=== PATIENT | male | born 1945 | race Caucasian/White ===

== ENCOUNTER → 2016-07-23 | Outpatient (CLI) | payer MEDICARE, BC ==
[2016-07-23 08:51] LABS: Direct HDL 32 mg/dL (>40); TRIGLYCERIDES 205 mg/dL (<150)
[2016-07-23 08:53] LABS: ANION GAP 13 (5-19); BLOOD UREA NITROGEN 18 mg/dL (7-20); CALCIUM 9.4 mg/dL (8.4-10.2); CARBON DIOXIDE 24 mmol/L (22-30); CHLORIDE 106 mmol/L (98-107); GLUCOSE 104 mg/dL (75-110); POTASSIUM 4.1 mmol/L (3.6-5.0); SODIUM 142.8 mmol/L (137-145)
[2016-07-23 09:01] LABS: DIRECT LDL 59 mg/dL (<100)
== END ==
LOC: OD 07:32
PROVIDERS: ATTEND Internal Medicine Cardiovascular Disease
DX: E78.2 Mixed hyperlipidemia (principal)
CPT/HCPCS: 36415; 80048; 80061

== ENCOUNTER → 2016-10-19 | Outpatient (CLI) | payer MEDICARE, BC ==
[2016-10-19 09:05] LABS: HEMATOCRIT 44.3 % (37.9-51.0); HEMOGLOBIN 15.5 g/dL (13.5-17.0); HGB HCT DIFFERENCE 2.2; RED BLOOD COUNT 4.85 10^6/uL (4.35-5.55); WHITE BLOOD COUNT 5.9 10^3/uL (4.0-10.5)
[2016-10-19 09:06] LABS: ABSOLUTE EOSINOPHILS # (AUTO) 0.3 10^3/uL (0.0-0.6); ABSOLUTE LYMPHOCYTES (AUTO) 1.3 10^3/uL (0.5-4.7); ABSOLUTE MONOCYTES (AUTO) 0.6 10^3/uL (0.1-1.4); ABSOLUTE NEUT (AUTO) 3.7 10^3/uL (1.7-8.2); BASOPHILS % (AUTO) 0.8 % (0-2); EOSINOPHILS % (AUTO) 4.8 % (0-6); LYMPHOCYTES % (AUTO) 22.2 % (13-45); MEAN CORPUSCULAR HEMOGLOBIN 31.9 pg (27.0-33.4); MEAN CORPUSCULAR HGB CONC 34.9 g/dL (32.0-36.0); MEAN CORPUSCULAR VOLUME 91 fl (80-97); MONOCYTES % (AUTO) 9.9 % (3-13); RED CELL DISTRIBUTION WIDTH 13.7 % (11.5-14.0); SEGMENTED NEUTROPHILS % (AUTO) 62.3 % (42-78)
[2016-10-19 09:21] LABS: ALANINE AMINOTRANSFERASE 43 U/L (21-72); ALKALINE PHOSPHATASE 99 U/L (38-126); ANION GAP 13 (5-19); ASPARTATE AMINO TRANSFERASE 37 U/L (17-59); BILIRUBIN,DIRECT 0.3 mg/dL (0.0-0.4); BLOOD UREA NITROGEN 22 mg/dL (7-20); CALCIUM 8.9 mg/dL (8.4-10.2); CARBON DIOXIDE 23 mmol/L (22-30); CHLORIDE 107 mmol/L (98-107); CREATININE RESULT 1.38 mg/dL (0.52-1.25); Direct HDL 32 mg/dL (>40); GLUCOSE 104 mg/dL (75-110); POTASSIUM 4.4 mmol/L (3.6-5.0); SODIUM 143.2 mmol/L (137-145); TOTAL PROTEIN 7.2 g/dL (6.3-8.2); TRIGLYCERIDES 191 mg/dL (<150)
[2016-10-19 09:32] LABS: DIRECT LDL 59 mg/dL (<100)
[2016-10-19 09:42] LABS: VLDL CHOLESTEROL 38.2 mg/dL (10-31)
[2016-10-19 09:43] LABS: ANION GAP 13 (5-19); BLOOD UREA NITROGEN 22 mg/dL (7-20); CALCIUM 8.9 mg/dL (8.4-10.2); CARBON DIOXIDE 23 mmol/L (22-30); CHLORIDE 107 mmol/L (98-107); CREATININE RESULT 1.38 mg/dL (0.52-1.25); GLUCOSE 104 mg/dL (75-110); POTASSIUM 4.4 mmol/L (3.6-5.0); SODIUM 143.2 mmol/L (137-145)
== END ==
LOC: OD 07:43
PROVIDERS: ATTEND Family Medicine Geriatric Medicine
DX: J44.9 Chronic obstructive pulmonary disease, unspecified (principal); E78.5 Hyperlipidemia, unspecified; I25.10 Atherosclerotic heart disease of native coronary artery without angina pectoris; Z79.899 Other long term (current) drug therapy; I12.9 Hypertensive chronic kidney disease with stage 1 through stage 4 chronic kidney disease, or unspecified chronic kidney disease; N18.9 Chronic kidney disease, unspecified
CPT/HCPCS: 36415; 80048; 80053; 80061; 85025

== ENCOUNTER → 2017-01-18 | Outpatient (CLI) | payer MEDICARE, BC ==
[2017-01-18 08:47] LABS: ABSOLUTE EOSINOPHILS # (AUTO) 0.3 10^3/uL (0.0-0.6); ABSOLUTE LYMPHOCYTES (AUTO) 1.3 10^3/uL (0.5-4.7); ABSOLUTE MONOCYTES (AUTO) 0.5 10^3/uL (0.1-1.4); ABSOLUTE NEUT (AUTO) 3.4 10^3/uL (1.7-8.2); BASOPHILS % (AUTO) 0.7 % (0-2); EOSINOPHILS % (AUTO) 5.2 % (0-6); HEMATOCRIT 45.5 % (37.9-51.0); HEMOGLOBIN 15.8 g/dL (13.5-17.0); HGB HCT DIFFERENCE 1.9; LYMPHOCYTES % (AUTO) 23.8 % (13-45); MEAN CORPUSCULAR HEMOGLOBIN 32.3 pg (27.0-33.4); MEAN CORPUSCULAR HGB CONC 34.7 g/dL (32.0-36.0); MEAN CORPUSCULAR VOLUME 93 fl (80-97); MONOCYTES % (AUTO) 9.6 % (3-13); RED BLOOD COUNT 4.89 10^6/uL (4.35-5.55); RED CELL DISTRIBUTION WIDTH 13.5 % (11.5-14.0); SEGMENTED NEUTROPHILS % (AUTO) 60.7 % (42-78); WHITE BLOOD COUNT 5.6 10^3/uL (4.0-10.5)
[2017-01-18 09:11] LABS: ALANINE AMINOTRANSFERASE 46 U/L (21-72); ALKALINE PHOSPHATASE 90 U/L (38-126); ANION GAP 12 (5-19); ASPARTATE AMINO TRANSFERASE 32 U/L (17-59); BILIRUBIN,DIRECT 0.3 mg/dL (0.0-0.4); BILIRUBIN,TOTAL 0.8 mg/dL (0.2-1.3); BLOOD UREA NITROGEN 15 mg/dL (7-20); CALCIUM 9.1 mg/dL (8.4-10.2); CARBON DIOXIDE 25 mmol/L (22-30); CHLORIDE 105 mmol/L (98-107); CREATININE RESULT 1.36 mg/dL (0.52-1.25); Direct HDL 31 mg/dL (>40); GLUCOSE 102 mg/dL (75-110); POTASSIUM 4.4 mmol/L (3.6-5.0); SODIUM 142.1 mmol/L (137-145); TOTAL PROTEIN 7.3 g/dL (6.3-8.2); TRIGLYCERIDES 212 mg/dL (<150)
[2017-01-18 09:22] LABS: DIRECT LDL 70 mg/dL (<100)
[2017-01-18 09:24] LABS: VLDL CHOLESTEROL 42.4 mg/dL (10-31)
[2017-01-18 09:44] LABS: ANION GAP 12 (5-19); BLOOD UREA NITROGEN 15 mg/dL (7-20); CALCIUM 9.1 mg/dL (8.4-10.2); CARBON DIOXIDE 25 mmol/L (22-30); CHLORIDE 105 mmol/L (98-107); CREATININE RESULT 1.36 mg/dL (0.52-1.25); DIRECT LDL 70 mg/dL (<100); Direct HDL 31 mg/dL (>40); GLUCOSE 102 mg/dL (75-110); POTASSIUM 4.4 mmol/L (3.6-5.0); SODIUM 142.1 mmol/L (137-145); TRIGLYCERIDES 212 mg/dL (<150); VLDL CHOLESTEROL 42.4 mg/dL (10-31)
== END ==
LOC: OD 07:31
PROVIDERS: ATTEND Family Medicine Geriatric Medicine
DX: E78.2 Mixed hyperlipidemia (principal); Z79.899 Other long term (current) drug therapy; N18.9 Chronic kidney disease, unspecified
CPT/HCPCS: 36415; 80048; 80053; 80061; 85025

== ENCOUNTER → 2017-07-21 | Outpatient (CLI) | payer MEDICARE, BC ==
[2017-07-21 09:57] LABS: CHOLESTEROL 130.27 mg/dL (0-200); TRIGLYCERIDES 192 mg/dL (<150)
[2017-07-21 10:08] LABS: DIRECT LDL 66 mg/dL (<100)
[2017-07-21 10:09] LABS: VLDL CHOLESTEROL 38.4 mg/dL (10-31)
== END ==
LOC: OD 09:04
PROVIDERS: ATTEND Internal Medicine Cardiovascular Disease
DX: E78.2 Mixed hyperlipidemia (principal)
CPT/HCPCS: 36415; 80061

== ENCOUNTER → 2017-08-29 | Outpatient (CLI) | payer MEDICARE, BC ==
[2017-08-29 08:58] LABS: ALANINE AMINOTRANSFERASE 44 U/L (21-72); ANION GAP 9 (5-19); ASPARTATE AMINO TRANSFERASE 28 U/L (17-59); BLOOD UREA NITROGEN 14 mg/dL (7-20); CALCIUM 9.2 mg/dL (8.4-10.2); CARBON DIOXIDE 28 mmol/L (22-30); CHLORIDE 106 mmol/L (98-107); CHOLESTEROL 152.59 mg/dL (0-200); GLUCOSE 105 mg/dL (75-110); POTASSIUM 4.4 mmol/L (3.6-5.0); SODIUM 143.1 mmol/L (137-145); TRIGLYCERIDES 283 mg/dL (<150)
[2017-08-29 09:09] LABS: DIRECT LDL 80 mg/dL (<100)
[2017-08-29 09:15] LABS: VLDL CHOLESTEROL 56.6 mg/dL (10-31)
== END ==
LOC: OD 07:30
PROVIDERS: ATTEND Family Medicine Geriatric Medicine
DX: E78.5 Hyperlipidemia, unspecified (principal); Z79.899 Other long term (current) drug therapy; D69.6 Thrombocytopenia, unspecified; I10 Essential (primary) hypertension
CPT/HCPCS: 36415; 80048; 80061; 84450; 84460

== ENCOUNTER → 2017-09-05 | Outpatient (CLI) | payer MEDICARE, BC ==
--- NOTE | 2017-09-05 16:22 | RADIOLOGY REPORT (SQ) ---
EXAM DESCRIPTION: HAND RIGHT 3 VIEWS COMPLETED DATE/TIME: 09/05/2017 12:16 pm REASON FOR STUDY: PAIN IN RIGHT FINGER(S) M79.644 PAIN IN RIGHT FINGER(S) COMPARISON: None. EXAM PARAMETERS: NUMBER OF VIEWS: Three views. TECHNIQUE: AP, lateral and oblique radiographic images acquired of the right hand. LIMITATIONS: None. FINDINGS: MINERALIZATION: Normal. BONES: No acute fracture or dislocation. No worrisome bone lesions. JOINTS: Degenerative joint changes seen in the 1st metacarpophalangeal joint PE SOFT TISSUES: No soft tissue swelling. No foreign body. OTHER: No other significant finding. IMPRESSION: Degenerative joint disease. TECHNICAL DOCUMENTATION: JOB ID: [id number] [employer]- All Rights Reserved Reading location - IP/workstation name: [email or web address]
== END ==
LOC: OD 11:51
PROVIDERS: ATTEND Family Medicine Geriatric Medicine
DX: M79.644 Pain in right finger(s) (principal)
CPT/HCPCS: 36415; 84550

== ENCOUNTER → 2017-09-07 | Outpatient (CLI) | payer MEDICARE, BC ==
--- NOTE | 2017-09-07 18:03 | RADIOLOGY REPORT (SQ) ---
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 NUMBER OF VIEWS: Three views. TECHNIQUE: AP, lateral, and oblique without weight bearing radiographic images acquired of the left ankle. LIMITATIONS: None. FINDINGS: MINERALIZATION: Normal. BONES: No acute fracture or dislocation. No worrisome bone lesions. Normal alignment. No significant arthritic changes. JOINTS AND SOFT TISSUES: No swelling. No calcifications. No foreign bodies. OTHER: No other significant finding. IMPRESSION: NEGATIVE STUDY OF THE LEFT ANKLE. NO ACUTE POST-TRAUMATIC CHANGES. NO EXPLANATION FOR PA IN. TECHNICAL DOCUMENTATION: JOB ID: [id number] [employer]- All Rights Reserved Reading location - IP/workstation name: [email or web address]
--- NOTE | 2017-09-07 18:04 | RADIOLOGY REPORT (SQ) ---
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 NUMBER OF VIEWS: Three views. TECHNIQUE: AP, lateral and oblique without weight bearing radiographic images acquired of the left f oot. LIMITATIONS: None. FINDINGS: MINERALIZATION: Normal. BONES: No acute fracture or dislocation. No worrisome bone lesions. Small heel spur. JOINTS: No erosions. No lucia-articular osteopenia. No chondrocalcinosis. SOFT TISSUES: No swelling. No calcifications. OTHER: No other significant finding. IMPRESSION: SMALL HEEL SPUR. NO ACUTE FINDINGS. TECHNICAL DOCUMENTATION: JOB ID: [id number] [employer]- All Rights Reserved Reading location - IP/workstation name: [email or web address]
== END ==
LOC: OD 16:48
PROVIDERS: ATTEND Family Medicine Geriatric Medicine
DX: M72.2 Plantar fascial fibromatosis (principal); M25.571 Pain in right ankle and joints of right foot; M77.32 Calcaneal spur, left foot

== ENCOUNTER → 2017-12-29 | Outpatient (CLI) | payer MEDICARE, BC ==
[2017-12-29 07:54] LABS: ABSOLUTE EOSINOPHILS # (AUTO) 0.3 10^3/uL (0.0-0.6); ABSOLUTE LYMPHOCYTES (AUTO) 1.3 10^3/uL (0.5-4.7); ABSOLUTE MONOCYTES (AUTO) 0.6 10^3/uL (0.1-1.4); ABSOLUTE NEUT (AUTO) 3.4 10^3/uL (1.7-8.2); BASOPHILS % (AUTO) 0.5 % (0-2); HEMATOCRIT 44.7 % (37.9-51.0); HEMOGLOBIN 15.8 g/dL (13.5-17.0); LYMPHOCYTES % (AUTO) 23.6 % (13-45); MEAN CORPUSCULAR HEMOGLOBIN 32.4 pg (27.0-33.4); MEAN CORPUSCULAR HGB CONC 35.3 g/dL (32.0-36.0); MEAN CORPUSCULAR VOLUME 92 fl (80-97); PLATELET COUNT 130 10^3/uL (150-450); RED BLOOD COUNT 4.86 10^6/uL (4.35-5.55); RED CELL DISTRIBUTION WIDTH 13.7 % (11.5-14.0); SEGMENTED NEUTROPHILS % (AUTO) 59.9 % (42-78); TOTAL CELLS COUNTED % (AUTO) 100 %; WHITE BLOOD COUNT 5.6 10^3/uL (4.0-10.5)
[2017-12-29 08:19] LABS: CHOLESTEROL 135.88 mg/dL (0-200); TRIGLYCERIDES 266 mg/dL (<150)
[2017-12-29 08:29] LABS: DIRECT LDL 66 mg/dL (<100)
[2017-12-29 08:33] LABS: VLDL CHOLESTEROL 53.2 mg/dL (10-31)
== END ==
LOC: OD 07:16
PROVIDERS: ATTEND Family Medicine Geriatric Medicine
DX: E78.5 Hyperlipidemia, unspecified (principal); Z79.899 Other long term (current) drug therapy
CPT/HCPCS: 36415; 80061; 85025

== ENCOUNTER → 2018-01-16 | Outpatient (CLI) | payer MEDICARE, BC ==
[2018-01-16 08:35] LABS: ANION GAP 13 (5-19); BLOOD UREA NITROGEN 16 mg/dL (7-20); CALCIUM 9.1 mg/dL (8.4-10.2); CARBON DIOXIDE 25 mmol/L (22-30); CHLORIDE 106 mmol/L (98-107); CHOLESTEROL 123.46 mg/dL (0-200); GLUCOSE 105 mg/dL (75-110); POTASSIUM 4.2 mmol/L (3.6-5.0); SODIUM 144.1 mmol/L (137-145); TRIGLYCERIDES 212 mg/dL (<150)
[2018-01-16 08:46] LABS: DIRECT LDL 58 mg/dL (<100)
[2018-01-16 08:47] LABS: VLDL CHOLESTEROL 42.4 mg/dL (10-31)
== END ==
LOC: OD 07:29
PROVIDERS: ATTEND Internal Medicine Cardiovascular Disease
DX: I10 Essential (primary) hypertension (principal); E78.2 Mixed hyperlipidemia; Z79.899 Other long term (current) drug therapy
CPT/HCPCS: 36415; 80048; 80061

== ENCOUNTER → 2018-05-09 | Outpatient (CLI) | payer MEDICARE ==
[2018-05-09 08:25] LABS: ABSOLUTE EOSINOPHILS # (AUTO) 0.2 10^3/uL (0.0-0.6); ABSOLUTE LYMPHOCYTES (AUTO) 1.5 10^3/uL (0.5-4.7); ABSOLUTE MONOCYTES (AUTO) 0.5 10^3/uL (0.1-1.4); ABSOLUTE NEUT (AUTO) 3.6 10^3/uL (1.7-8.2); BASOPHILS % (AUTO) 0.6 % (0-2); EOSINOPHILS % (AUTO) 3.8 % (0-6); HEMATOCRIT 45.4 % (37.9-51.0); LYMPHOCYTES % (AUTO) 25.3 % (13-45); MEAN CORPUSCULAR HEMOGLOBIN 32.9 pg (27.0-33.4); MEAN CORPUSCULAR HGB CONC 35.4 g/dL (32.0-36.0); MEAN CORPUSCULAR VOLUME 93 fl (80-97); MONOCYTES % (AUTO) 8.7 % (3-13); PLATELET COUNT 150 10^3/uL (150-450); RED BLOOD COUNT 4.88 10^6/uL (4.35-5.55); RED CELL DISTRIBUTION WIDTH 13.9 % (11.5-14.0); SEGMENTED NEUTROPHILS % (AUTO) 61.6 % (42-78); TOTAL CELLS COUNTED % (AUTO) 100 %; WHITE BLOOD COUNT 5.8 10^3/uL (4.0-10.5)
[2018-05-09 09:07] LABS: ALANINE AMINOTRANSFERASE 33 U/L (21-72); ANION GAP 15 (5-19); BLOOD UREA NITROGEN 22 mg/dL (7-20); CALCIUM 9.4 mg/dL (8.4-10.2); CARBON DIOXIDE 23 mmol/L (22-30); CHLORIDE 105 mmol/L (98-107); CHOLESTEROL 135.33 mg/dL (0-200); GLUCOSE 109 mg/dL (75-110); POTASSIUM 4.4 mmol/L (3.6-5.0); SODIUM 142.8 mmol/L (137-145); TRIGLYCERIDES 148 mg/dL (<150)
[2018-05-09 09:21] LABS: DIRECT LDL 86 mg/dL (<100)
== END ==
LOC: OD 07:42
PROVIDERS: ATTEND Family Medicine Geriatric Medicine
DX: E78.5 Hyperlipidemia, unspecified (principal); I10 Essential (primary) hypertension
CPT/HCPCS: 36415; 80048; 80061; 84460; 85025

== ENCOUNTER → 2018-05-22 | Outpatient (CLI) | payer MEDICARE, BC ==
--- NOTE | 2018-05-22 16:59 | RADIOLOGY REPORT (SQ) ---
EXAM DESCRIPTION: CHEST PA/LATERAL COMPLETED DATE/TIME: 05/22/2018 4:51 pm REASON FOR STUDY: COPD;COUGH COMPARISON: Two-view chest 04/20/2016 EXAM PARAMETERS: NUMBER OF VIEWS: two views TECHNIQUE: Digital Frontal and Lateral radiographic views of the chest acquired. RADIATION DOSE: NA LIMITATIONS: none FINDINGS: LUNGS AND PLEURA: No opacities, masses or pneumothorax. No pleural effusion. MEDIASTINUM AND HILAR STRUCTURES: No masses or contour abnormalities. HEART AND VASCULAR STRUCTURES: Heart normal size. No evidence for failure. BONES: No acute findings. HARDWARE: None in the chest. OTHER: No other significant finding. IMPRESSION: NO SIGNIFICANT RADIOGRAPHIC FINDING IN THE CHEST. TECHNICAL DOCUMENTATION: JOB ID: [id number] [employer]- All Rights Reserved Reading location - IP/workstation name: [email or web address]
== END ==
LOC: OD 16:25
PROVIDERS: ATTEND Family Medicine Geriatric Medicine
DX: J44.9 Chronic obstructive pulmonary disease, unspecified (principal); R05 Cough
CPT/HCPCS: 71046

== ENCOUNTER → 2018-05-25 | Outpatient (CLI) | payer MEDICARE, BC ==
[2018-05-25 08:55] LABS: ANION GAP 10 (5-19); BLOOD UREA NITROGEN 19 mg/dL (7-20); CALCIUM 9.3 mg/dL (8.4-10.2); CARBON DIOXIDE 28 mmol/L (22-30); CHLORIDE 105 mmol/L (98-107); GLUCOSE 120 mg/dL (75-110); POTASSIUM 4.5 mmol/L (3.6-5.0); SODIUM 142.9 mmol/L (137-145)
== END ==
LOC: LAB 08:07
PROVIDERS: ATTEND Internal Medicine Cardiovascular Disease
DX: N18.9 Chronic kidney disease, unspecified (principal)
CPT/HCPCS: 36415; 80048

== ENCOUNTER → 2018-08-22 | Outpatient (CLI) | payer MEDICARE, BC ==
--- NOTE | 2018-08-22 16:13 | RADIOLOGY REPORT (SQ) ---
EXAM DESCRIPTION: CHEST PA/LATERAL COMPLETED DATE/TIME: 08/22/2018 3:19 pm REASON FOR STUDY: RT LL PNEUMONIA COMPARISON: Two-view chest 05/22/2018, 01/19/2016 EXAM PARAMETERS: NUMBER OF VIEWS: two views TECHNIQUE: Digital Frontal and Lateral radiographic views of the chest acquired. RADIATION DOSE: NA LIMITATIONS: none FINDINGS: LUNGS AND PLEURA: No opacities, masses or pneumothorax. No pleural effusion. MEDIASTINUM AND HILAR STRUCTURES: No masses or contour abnormalities. HEART AND VASCULAR STRUCTURES: Heart normal size. No evidence for failure. BONES: No acute findings. HARDWARE: None in the chest. OTHER: No other significant finding. IMPRESSION: NO SIGNIFICANT RADIOGRAPHIC FINDING IN THE CHEST. TECHNICAL DOCUMENTATION: JOB ID: [id number] [employer]- All Rights Reserved Reading location - IP/workstation name: [email or web address]
== END ==
LOC: OD 14:46
PROVIDERS: ATTEND Family Medicine Geriatric Medicine
DX: J18.9 Pneumonia, unspecified organism (principal)
CPT/HCPCS: 71046

== ENCOUNTER → 2018-08-25 | Outpatient (CLI) | payer MEDICARE, BC ==
[2018-08-25 09:09] LABS: ANION GAP 12 (5-19); BLOOD UREA NITROGEN 29 mg/dL (7-20); CALCIUM 9.6 mg/dL (8.4-10.2); CARBON DIOXIDE 26 mmol/L (22-30); CHLORIDE 101 mmol/L (98-107); GLUCOSE 103 mg/dL (75-110); POTASSIUM 4.7 mmol/L (3.6-5.0)
[2018-08-25 09:53] LABS: ALANINE AMINOTRANSFERASE 51 U/L (21-72); ALBUMIN 4.3 g/dL (3.5-5.0); ALKALINE PHOSPHATASE 124 U/L (38-126); ASPARTATE AMINO TRANSFERASE 33 U/L (17-59); BILIRUBIN,DIRECT 0.2 mg/dL (0.0-0.4); BILIRUBIN,TOTAL 0.6 mg/dL (0.2-1.3); CHOLESTEROL 151.63 mg/dL (0-200); TOTAL PROTEIN 7.7 g/dL (6.3-8.2); TRIGLYCERIDES 165 mg/dL (<150)
[2018-08-25 10:05] LABS: DIRECT LDL 86 mg/dL (<100)
== END ==
LOC: LAB 08:15
PROVIDERS: ATTEND Internal Medicine Cardiovascular Disease
DX: I10 Essential (primary) hypertension (principal); Z79.899 Other long term (current) drug therapy; I25.10 Atherosclerotic heart disease of native coronary artery without angina pectoris; E78.2 Mixed hyperlipidemia
CPT/HCPCS: 36415; 80048; 80061; 80076

== ENCOUNTER → 2018-08-31 | Outpatient (CLI) | payer MEDICARE, BC ==
[2018-08-31 09:27] LABS: ANION GAP 9 (5-19); BLOOD UREA NITROGEN 21 mg/dL (7-20); CALCIUM 9.2 mg/dL (8.4-10.2); CARBON DIOXIDE 30 mmol/L (22-30); CHLORIDE 101 mmol/L (98-107); GLUCOSE 101 mg/dL (75-110); POTASSIUM 4.6 mmol/L (3.6-5.0); SODIUM 140.1 mmol/L (137-145)
== END ==
LOC: LAB 08:33
PROVIDERS: ATTEND Internal Medicine Cardiovascular Disease
DX: N18.9 Chronic kidney disease, unspecified (principal); Z79.899 Other long term (current) drug therapy
CPT/HCPCS: 36415; 80048

== ENCOUNTER → 2018-09-07 | Outpatient (CLI) | payer MEDICARE, BC ==
[2018-09-07 09:26] LABS: ABSOLUTE EOSINOPHILS # (AUTO) 0.3 10^3/uL (0.0-0.6); ABSOLUTE LYMPHOCYTES (AUTO) 1.3 10^3/uL (0.5-4.7); ABSOLUTE MONOCYTES (AUTO) 0.5 10^3/uL (0.1-1.4); ABSOLUTE NEUT (AUTO) 3.5 10^3/uL (1.7-8.2); BASOPHILS % (AUTO) 0.6 % (0-2); EOSINOPHILS % (AUTO) 4.7 % (0-6); HEMATOCRIT 42.7 % (37.9-51.0); HEMOGLOBIN 15.2 g/dL (13.5-17.0); LYMPHOCYTES % (AUTO) 23.1 % (13-45); MEAN CORPUSCULAR HEMOGLOBIN 32.6 pg (27.0-33.4); MEAN CORPUSCULAR HGB CONC 35.6 g/dL (32.0-36.0); MEAN CORPUSCULAR VOLUME 92 fl (80-97); MONOCYTES % (AUTO) 9.3 % (3-13); PLATELET COUNT 138 10^3/uL (150-450); RED BLOOD COUNT 4.66 10^6/uL (4.35-5.55); RED CELL DISTRIBUTION WIDTH 14.1 % (11.5-14.0); SEGMENTED NEUTROPHILS % (AUTO) 62.3 % (42-78); TOTAL CELLS COUNTED % (AUTO) 100 %; WHITE BLOOD COUNT 5.7 10^3/uL (4.0-10.5)
== END ==
LOC: LAB 08:58
PROVIDERS: ATTEND Family Medicine Geriatric Medicine
DX: I10 Essential (primary) hypertension (principal); D69.6 Thrombocytopenia, unspecified; Z79.899 Other long term (current) drug therapy
CPT/HCPCS: 36415; 85025

== ENCOUNTER → 2018-09-25 | Outpatient (CLI) | payer MEDICARE, BC ==
[2018-09-25 08:35] LABS: ANION GAP 9 (5-19); BLOOD UREA NITROGEN 16 mg/dL (7-20); CALCIUM 9.3 mg/dL (8.4-10.2); CARBON DIOXIDE 24 mmol/L (22-30); CHLORIDE 108 mmol/L (98-107); GLUCOSE 110 mg/dL (75-110); POTASSIUM 4.1 mmol/L (3.6-5.0); SODIUM 140.8 mmol/L (137-145)
== END ==
LOC: LAB 07:40
PROVIDERS: ATTEND Internal Medicine Cardiovascular Disease
DX: I10 Essential (primary) hypertension (principal); Z79.899 Other long term (current) drug therapy
CPT/HCPCS: 36415; 80048

== ENCOUNTER → 2019-01-01 | Outpatient (CLI) | payer MEDICARE, BC ==
[2019-01-01 07:51] LABS: ALANINE AMINOTRANSFERASE 35 U/L (21-72); ALBUMIN 4.4 g/dL (3.5-5.0); ALKALINE PHOSPHATASE 87 U/L (38-126); ANION GAP 10 (5-19); ASPARTATE AMINO TRANSFERASE 34 U/L (17-59); BILIRUBIN,DIRECT 0.2 mg/dL (0.0-0.4); BILIRUBIN,TOTAL 0.7 mg/dL (0.2-1.3); BLOOD UREA NITROGEN 27 mg/dL (7-20); CALCIUM 9.6 mg/dL (8.4-10.2); CARBON DIOXIDE 25 mmol/L (22-30); CHLORIDE 105 mmol/L (98-107); CHOLESTEROL 153.25 mg/dL (0-200); GLUCOSE 107 mg/dL (75-110); POTASSIUM 4.9 mmol/L (3.6-5.0); SODIUM 139.8 mmol/L (137-145); TOTAL PROTEIN 7.7 g/dL (6.3-8.2); TRIGLYCERIDES 252 mg/dL (<150)
[2019-01-01 08:02] LABS: DIRECT LDL 73 mg/dL (<100)
[2019-01-01 08:03] LABS: VLDL CHOLESTEROL 50.4 mg/dL (10-31)
== END ==
LOC: LAB 07:12
PROVIDERS: ATTEND Internal Medicine Cardiovascular Disease
DX: E78.2 Mixed hyperlipidemia (principal); I10 Essential (primary) hypertension; Z79.899 Other long term (current) drug therapy
CPT/HCPCS: 36415; 80048; 80061; 80076

== ENCOUNTER → 2019-01-12 | Outpatient (CLI) | payer MEDICARE, BC ==
[2019-01-12 08:18] LABS: ABSOLUTE EOSINOPHILS # (AUTO) 0.3 10^3/uL (0.0-0.6); ABSOLUTE LYMPHOCYTES (AUTO) 1.2 10^3/uL (0.5-4.7); ABSOLUTE MONOCYTES (AUTO) 0.6 10^3/uL (0.1-1.4); ABSOLUTE NEUT (AUTO) 3.8 10^3/uL (1.7-8.2); BASOPHILS % (AUTO) 0.5 % (0-2); EOSINOPHILS % (AUTO) 4.9 % (0-6); HEMATOCRIT 44.3 % (37.9-51.0); HEMOGLOBIN 15.4 g/dL (13.5-17.0); LYMPHOCYTES % (AUTO) 20.2 % (13-45); MEAN CORPUSCULAR HEMOGLOBIN 32.1 pg (27.0-33.4); MEAN CORPUSCULAR HGB CONC 34.7 g/dL (32.0-36.0); MEAN CORPUSCULAR VOLUME 92 fl (80-97); MONOCYTES % (AUTO) 9.6 % (3-13); PLATELET COUNT 133 10^3/uL (150-450); SEGMENTED NEUTROPHILS % (AUTO) 64.8 % (42-78); TOTAL CELLS COUNTED % (AUTO) 100 %; WHITE BLOOD COUNT 5.8 10^3/uL (4.0-10.5)
[2019-01-12 08:26] LABS: ALANINE AMINOTRANSFERASE 34 U/L (21-72); ALBUMIN 3.9 g/dL (3.5-5.0); ALKALINE PHOSPHATASE 87 U/L (38-126); ANION GAP 10 (5-19); ASPARTATE AMINO TRANSFERASE 26 U/L (17-59); BILIRUBIN,DIRECT 0.2 mg/dL (0.0-0.4); BILIRUBIN,TOTAL 0.6 mg/dL (0.2-1.3); BLOOD UREA NITROGEN 16 mg/dL (7-20); CARBON DIOXIDE 22 mmol/L (22-30); CHLORIDE 110 mmol/L (98-107); CHOLESTEROL 137.72 mg/dL (0-200); GLUCOSE 111 mg/dL (75-110); POTASSIUM 4.2 mmol/L (3.6-5.0); TOTAL PROTEIN 6.7 g/dL (6.3-8.2); TRIGLYCERIDES 159 mg/dL (<150)
[2019-01-12 08:37] LABS: DIRECT LDL 72 mg/dL (<100)
[2019-01-12 08:40] LABS: VLDL CHOLESTEROL 31.8 mg/dL (10-31)
[2019-01-12 08:41] LABS: ANION GAP 10 (5-19); BLOOD UREA NITROGEN 16 mg/dL (7-20); CARBON DIOXIDE 22 mmol/L (22-30); CHLORIDE 110 mmol/L (98-107); GLUCOSE 111 mg/dL (75-110); POTASSIUM 4.2 mmol/L (3.6-5.0)
== END ==
LOC: LAB 07:26
PROVIDERS: ATTEND Family Medicine Geriatric Medicine
DX: I12.9 Hypertensive chronic kidney disease with stage 1 through stage 4 chronic kidney disease, or unspecified chronic kidney disease (principal); N18.3 Chronic kidney disease, stage 3 (moderate); E78.5 Hyperlipidemia, unspecified; Z79.899 Other long term (current) drug therapy
CPT/HCPCS: 36415; 80048; 80061; 85025; 87070

== ENCOUNTER 2019-01-19 00:23 | Emergency (ER) | payer MEDICARE, BC ==
[2019-01-19] MEDS ORDERED: NORMAL SALINE 1000 ML 1,000 ML IV PRN (00:54)
[2019-01-19] MEDS ORDERED: HYDROMORPHONE HCL INJ/PF 2 MG/ML AMPULE IV ONE (00:54)
[2019-01-19 01:20] LABS: ABSOLUTE EOSINOPHILS # (AUTO) 0.4 10^3/uL (0.0-0.6); ABSOLUTE LYMPHOCYTES (AUTO) 1.6 10^3/uL (0.5-4.7); ABSOLUTE MONOCYTES (AUTO) 0.9 10^3/uL (0.1-1.4); ABSOLUTE NEUT (AUTO) 5.1 10^3/uL (1.7-8.2); BASOPHILS % (AUTO) 0.5 % (0-2); EOSINOPHILS % (AUTO) 4.6 % (0-6); HEMATOCRIT 45.9 % (37.9-51.0); HEMOGLOBIN 15.7 g/dL (13.5-17.0); LYMPHOCYTES % (AUTO) 20.2 % (13-45); MEAN CORPUSCULAR HEMOGLOBIN 32.1 pg (27.0-33.4); MEAN CORPUSCULAR HGB CONC 34.2 g/dL (32.0-36.0); MEAN CORPUSCULAR VOLUME 94 fl (80-97); MONOCYTES % (AUTO) 11.2 % (3-13); PLATELET COUNT 157 10^3/uL (150-450); RED BLOOD COUNT 4.88 10^6/uL (4.35-5.55); RED CELL DISTRIBUTION WIDTH 14.3 % (11.5-14.0); SEGMENTED NEUTROPHILS % (AUTO) 63.5 % (42-78); TOTAL CELLS COUNTED % (AUTO) 100 %
[2019-01-19 01:39] LABS: ALANINE AMINOTRANSFERASE 31 U/L (21-72); ALBUMIN 4.3 g/dL (3.5-5.0); ALKALINE PHOSPHATASE 98 U/L (38-126); ANION GAP 9 (5-19); ASPARTATE AMINO TRANSFERASE 37 U/L (17-59); BILIRUBIN,DIRECT 0.3 mg/dL (0.0-0.4); BILIRUBIN,TOTAL 0.7 mg/dL (0.2-1.3); BLOOD UREA NITROGEN 18 mg/dL (7-20); CALCIUM 9.4 mg/dL (8.4-10.2); CARBON DIOXIDE 28 mmol/L (22-30); CHLORIDE 107 mmol/L (98-107); CREATINE KINASE 191 U/L (55-170); GLUCOSE 116 mg/dL (75-110); POTASSIUM 4.5 mmol/L (3.6-5.0); TOTAL PROTEIN 7.8 g/dL (6.3-8.2)
[2019-01-19 01:51] LABS: CREATINE KINASE MB 1.65 ng/mL (<4.55)
[2019-01-19 01:52] LABS: TROPONIN I < 0.012 ng/mL
--- NOTE | 2019-01-19 01:57 | RADIOLOGY REPORT (SQ) ---
EXAM: X-ray acute abdomen series CLINICAL DATA: 73-year-old male with epigastric abdominal pain, rule out colon perforation TECHNICAL DATA: Three x-ray images of the chest and abdomen were performed including a PA radiograph of the chest as well as supine and upright views of the abdomen. This study was performed on 01/19/2019 at 1:46 AM. Comparison: Prior chest x-ray performed on 08/22/2018. FINDINGS: The lungs are well expanded and are grossly clear. There is minimal scarring or atelectasis in the right lung base. There is no evidence of a pneumothorax. The lateral costophrenic sulci are clear. The cardiac silhouette is normal in size and configuration. No acute osseous abnormalities are identified. The bowel gas pattern is nonspecific and nonobstructive. There is no evidence of free air or significant air-fluid levels. No pathologic abdominal calcifications are identified. No focal soft tissue abnormalities are seen. A right hip arthroplasty is present. IMPRESSION: 1. No evidence of acute intrathoracic disease.. There is minimal scarring or atelectasis in the right lung base 2. Nonspecific nonobstructive bowel gas pattern. There is no evidence of free intraperitoneal air to suggest colon perforation.
--- NOTE | 2019-01-19 02:07 | ER Document Report ---
Entered by MANUEL CAMACHO SCRIBE 01/19/19 0053 Acting as scribe for:AYDIN AC DO ED GI/ - General Chief Complaint: Abdominal Pain Stated Complaint: ABDOMINAL PAIN Time Seen by Provider: 01/19/19 00:44 Primary Care Provider: GRACIELA POP MD [Primary Care Provider] - Follow up as needed Mode of Arrival: Ambulatory Information source: Patient Notes: 73-year-old male that presents to the emergency department today with complaints of epigastric abdominal pain abdominal pain which began x2-4 hours ago after eating ice cream. Of significance, the patient has a history of "colon rupture" in 1996 with subsequent resection. Patient describes what sounds like ischemic bowel (area of bowel the size of a nickel) although he states that he does not know what caused this. Patient states he feels like it is gas but he has "belched several times and his pain has not changed". Patient denies any nausea, vomiting, diarrhea, or fevers. Patient does take aspirin and Plavix daily. TRAVEL OUTSIDE OF THE [place] IN LAST 30 DAYS: No - Related Data Allergies/Adverse Reactions: bupivacaine HCl [From Marcaine] Adverse Reaction (Intermediate, Verified 12/02/15 15:03) Hypotension rofecoxib [From Vioxx] Adverse Reaction (Intermediate, Verified 12/02/15 15:03) Hepatic dysfunction Past Medical History - General Information source: Patient - Social History Smoking Status: Former Smoker Cigarette use (# per day): No Frequency of alcohol use: None Drug Abuse: None Lives with: Family Family History: Reviewed & Not Pertinent - Past Medical History Cardiac Medical History: Reports: Hx Coronary Artery Disease, Hx Heart Attack - 1992, Hx Hypercholesterolemia, Hx Hypertension Pulmonary Medical History: Reports: Hx COPD, Hx Pneumonia - 2000 GI Medical History: Reports: Hx Gastroesophageal Reflux Disease Past Surgical History: Reports: Hx Cardiac Surgery - Stents 2013, Hx Orthopedic Surgery - right hip replacement - Immunizations Hx Diphtheria, Pertussis, Tetanus Vaccination: No Hx Pneumococcal Vaccination: 06/05/14 Review of Systems - Review of Systems Constitutional: denies: Fever EENT: No symptoms reported Cardiovascular: No symptoms reported Respiratory: No symptoms reported Gastrointestinal: See HPI, Abdominal pain. denies: Diarrhea, Nausea, Vomiting Genitourinary: No symptoms reported Male Genitourinary: No symptoms reported Musculoskeletal: No symptoms reported Skin: No symptoms reported Hematologic/Lymphatic: No symptoms reported Neurological/Psychological: No symptoms reported -: Yes All other systems reviewed and negative Physical Exam - Vital signs Vitals: Temp Pulse BP Pulse Ox 97.7 F 68 160/77 H 96 01/19/19 00:28 01/19/19 00:28 01/19/19 00:28 01/19/19 00:28 Interpretation: Hypertensive - Notes Notes: PHYSICAL EXAM GENERAL: Alert, interacts well. Appears uncomfortable, stands up and paces around the room for comfort. HEAD: Normocephalic, atraumatic. EYES: Pupils equal, round, and reactive to light. Extraocular movements intact. ENT: Oral mucosa moist, tongue midline. NECK: Full range of motion. Supple. Trachea midline. LUNGS: Clear to auscultation bilaterally, no wheezes, rales, or rhonchi. No respiratory distress. HEART: Regular rate and rhythm. No murmurs, gallops, or rubs. ABDOMEN: Soft, reports no change in his pain with palpation of the abdomen, small amount of epigastric guarding. non-distended. Bowel sounds present in all 4 quadrants. No rigidity or rebound. EXTREMITIES: Moves all 4 extremities spontaneously. No edema, radial and dorsalis pedis pulses 2/4 bilaterally. No cyanosis. NEUROLOGICAL: Alert and oriented x3. Normal speech. PSYCH: Normal affect, normal mood. SKIN: Warm, dry, normal turgor. No rashes or lesions noted. Course - Re-evaluation Re-evalutation: 01/19/19 02:04 CBC unremarkable, CMP shows slightly elevated creatinine at 1.55, slightly higher than last week at 1.29, cardiac enzymes negative, glucose slightly elevated 116, this is not fasting, acute abdominal series does not see any sign of obstruction or free air. CT scan of the abdomen results are pending. 01/19/19 02:39 Patient is now lying in bed, stating he has absolutely no pain whatsoever, he feels much better, troponin negative, lipase normal, CAT scan shows no definite acute inflammatory process, there is a 2.9 cm abdominal aortic aneurysm suspected, recommend follow-up every 5 years. Patient does have a hiatal hernia. I suspect this is what was causing the patient's pain and it self reduced after his pain was controlled. 01/19/19 02:47 Lactic acid is negative at 1.1 - Vital Signs Vital signs: Temp Pulse Resp BP Pulse Ox 97.7 F 68 14 177/82 H 92 01/19/19 00:28 01/19/19 00:28 01/19/19 02:06 01/19/19 01:39 01/19/19 02:06 - Laboratory Result Diagrams: 01/19/19 01:00 01/19/19 01:00 Laboratory results interpreted by me: 01/19/19 01/19/19 01:00 01:00 RDW 14.3 H Creatinine 1.55 H Est GFR ( Amer) 53 L Est GFR (Non-Af Amer) 44 L Glucose 116 H Creatine Kinase 191 H - EKG Interpretation by Me Additional EKG results interpreted by me: 01/19/19 02:04 EKG shows sinus bradycardia at a rate of 54, normal axis, normal intervals, no ST segment elevations or depressions, no T wave inversions, low voltage in lead III per my interpretation. Discharge - Discharge Clinical Impression: Epigastric abdominal pain, Hiatal hernia Abdominal aortic aneurysm Qualifiers: Presence of rupture: without rupture Qualified Code(s): I71.4 - Abdominal aortic aneurysm, without rupture Condition: Stable Disposition: HOME, SELF-CARE Additional Instructions: Abdominal Pain There are many causes of abdominal pain. Pain can mean a serious problem requiring surgery (such as appendicitis). It can also be an innocent problem that goes away on its own (such as a viral infection). Often, time must pass to determine the cause of pain. The physician does not feel that hospitalization is necessary, at present. Things may change within the next 24 hours. Call the doctor or come back for re- examination if any problems occur, such as: (1) Pain that becomes more severe, steady, or becomes concentrated in one specific area. Also, pain that is more severe with movement or coughing. (2) Vomiting that persists or becomes more frequent. (3) Blood in the vomitus, urine, or bowel movements. Blood in the stool may have a tarry or black appearance. (4) Shaking chills or fever greater than 100 degrees F. (5) The abdomen becomes more distended or swollen. (6) Bowel movements cease. (7) Failure to improve as expected. I suspect your pain is coming from a hiatal hernia. This is where your stomach slides into your chest due to weak muscles in your diaphragm. Eating small meals, staying upright after meals and wearing clothes with loose waistbands can decrease your discomfort. Sometimes it gets bad enough enough that you need surgery to decrease your symptoms. You also have an incidental finding of a 2.9 cm abdominal aortic aneurysm. This is not causing any problems right now, but it should be rechecked every 5 years to ensure it doesn't get bigger. Referrals: GRACIELA POP MD [Primary Care Provider] - Follow up as needed I personally performed the services described in the documentation, reviewed and edited the documentation which was dictated to the scribe in my presence, and it accurately records my words and actions.
--- NOTE | 2019-01-19 02:33 | RADIOLOGY REPORT (SQ) ---
CLINICAL HISTORY: epigastric abd pain, r/o "colon perf". CREAT 1.55 COMPARISON: None. TECHNIQUE: CT ABDOMEN PELVIS WITH IV CONTRAST on 01/19/2019 12:54 AM CDT This exam was performed according to our departmental dose-optimization program, which includes automated exposure control, adjustment of the mA and/or kV according to patient size and/or use of iterative reconstruction technique. FINDINGS: There is mild bibasilar atelectasis and scarring. Abdomen: The liver is normal in appearance. There is no biliary dilatation. Gallbladder is normal in appearance. There is a small hiatal hernia. The pancreas and spleen are normal in appearance. Adrenal glands are normal. Kidneys are mildly atrophic. Abdominal aorta is moderately calcified with maximal diameter of 2.9 cm. There is no free air. There is no retroperitoneal adenopathy. Pelvis: The right colon appears to be absent. Urinary bladder is unremarkable. There is no free fluid. Skeleton: There are no acute osseous findings. No suspicious bony lesions. Right hip arthroplasty was performed. IMPRESSION: No definite acute inflammatory process. 2.9 cm abdominal aortic aneurysm suspected. Recommend follow-up every 5 years. Reference: J Am Daniel Radiol 2013;10:789-794.
[2019-01-19 03:19] VITALS: BP 168/78
--- NOTE | 2019-01-19 10:10 | EKG REPORT ---
SEVERITY:- NORMAL ECG - SINUS RHYTHM : Confirmed by: Eve Duarte 19-Jan-2019 10:09:57
== END 2019-01-19 03:10 | disposition home or self-care (01) ==
LOC: ER 00:23
DX: I71.4 Abdominal aortic aneurysm, without rupture (principal); K44.9 Diaphragmatic hernia without obstruction or gangrene; R10.13 Epigastric pain; Z79.02 Long term (current) use of antithrombotics/antiplatelets; Z79.82 Long term (current) use of aspirin; Z87.891 Personal history of nicotine dependence; I25.10 Atherosclerotic heart disease of native coronary artery without angina pectoris; I10 Essential (primary) hypertension; J44.9 Chronic obstructive pulmonary disease, unspecified
CPT/HCPCS: 93005; 99284; 96361; 96374; 36415; 82553; 82550; 83690; 85025; 80053; 84484; 83605; 74022; 74177; 93010; J1170; J7030

== ENCOUNTER → 2019-02-09 | Outpatient (CLI) | payer MEDICARE, BC ==
[2019-02-09 09:13] LABS: ANION GAP 10 (5-19); BLOOD UREA NITROGEN 20 mg/dL (7-20); CALCIUM 9.1 mg/dL (8.4-10.2); CARBON DIOXIDE 27 mmol/L (22-30); CHLORIDE 105 mmol/L (98-107); GLUCOSE 116 mg/dL (75-110); POTASSIUM 4.5 mmol/L (3.6-5.0)
== END ==
LOC: LAB 08:38
PROVIDERS: ATTEND Physician Assistant
DX: I12.9 Hypertensive chronic kidney disease with stage 1 through stage 4 chronic kidney disease, or unspecified chronic kidney disease (principal); N18.9 Chronic kidney disease, unspecified
CPT/HCPCS: 36415; 80048

== ENCOUNTER 2019-04-09 06:42 | Day surgery (SDC) | payer MEDICARE, BC ==
[2019-04-09] MEDS ORDERED: PROPOFOL INJ 200 MG/20 ML VIAL IV ONE (07:30)
[2019-04-09 09:16] VITALS: BP 130/90
--- NOTE | 2019-04-09 14:00 | Operative Report ---
Operative Report DATE OF SURGERY: 04/09/19 Operative Report: The risks benefits and alternatives of the procedure explained to the patient in detail and informed consent is obtained.A GIF Olympus video scope was inserted into the patient's mouth and hypopharynx ,the esophagus is identified intubated and insufflated, the scope was then advanced through the esophagus stomach and duodenum, retroflexion maneuver is done, the esophagus stomach and first and second portions of the duodenum examined. PREOPERATIVE DIAGNOSIS: Gastroesophageal reflux disease POSTOPERATIVE DIAGNOSIS: Gastritis status post biopsy for Helicobacter pylori OPERATION: EGD with biopsy SURGEON: FABY CATES ANESTHESIA: LMAC TISSUE REMOVED OR ALTERED: As noted above. COMPLICATIONS: None. ESTIMATED BLOOD LOSS: None. INTRAOPERATIVE FINDINGS: As noted above. PROCEDURE: Patient tolerated the procedure well. No immediate postprocedure complications are noted. Patient is discharged in good condition. Discharge date 04/09/2019. Discharge diet: Regular. Discharge activity: Regular. 2 to 3-week follow-up to discuss findings. Patient is instructed to call the office or proceed to the emergency room should there be any further problems or questions. Wait on the pathology.
== END 2019-04-09 09:15 | disposition home or self-care (01) ==
LOC: END 06:42
PROVIDERS: ATTEND Internal Medicine Gastroenterology
DX: K29.50 Unspecified chronic gastritis without bleeding (principal); I10 Essential (primary) hypertension; K21.9 Gastro-esophageal reflux disease without esophagitis; J44.9 Chronic obstructive pulmonary disease, unspecified; I25.2 Old myocardial infarction; Z79.51 Long term (current) use of inhaled steroids; Z79.82 Long term (current) use of aspirin; Z79.899 Other long term (current) drug therapy; Z79.02 Long term (current) use of antithrombotics/antiplatelets
CPT/HCPCS: 43239; 88305 ×2; 00731; J2704; 731

== ENCOUNTER → 2019-05-07 | Outpatient (CLI) | payer MEDICARE, BC ==
[2019-05-07 09:01] LABS: ABSOLUTE EOSINOPHILS # (AUTO) 0.2 10^3/uL (0.0-0.6); ABSOLUTE LYMPHOCYTES (AUTO) 1.2 10^3/uL (0.5-4.7); ABSOLUTE MONOCYTES (AUTO) 0.5 10^3/uL (0.1-1.4); ABSOLUTE NEUT (AUTO) 3.7 10^3/uL (1.7-8.2); BASOPHILS % (AUTO) 0.7 % (0-2); EOSINOPHILS % (AUTO) 4.1 % (0-6); HEMATOCRIT 47.1 % (37.9-51.0); HEMOGLOBIN 16.3 g/dL (13.5-17.0); LYMPHOCYTES % (AUTO) 21.2 % (13-45); MEAN CORPUSCULAR HEMOGLOBIN 32.1 pg (27.0-33.4); MEAN CORPUSCULAR HGB CONC 34.6 g/dL (32.0-36.0); MEAN CORPUSCULAR VOLUME 93 fl (80-97); PLATELET COUNT 129 10^3/uL (150-450); RED BLOOD COUNT 5.09 10^6/uL (4.35-5.55); RED CELL DISTRIBUTION WIDTH 13.5 % (11.5-14.0); TOTAL CELLS COUNTED % (AUTO) 100 %; WHITE BLOOD COUNT 5.7 10^3/uL (4.0-10.5)
[2019-05-07 09:30] LABS: ALBUMIN 4.2 g/dL (3.5-5.0); ALKALINE PHOSPHATASE 87 U/L (38-126); ANION GAP 10 (5-19); ASPARTATE AMINO TRANSFERASE 30 U/L (17-59); BILIRUBIN,DIRECT 0.2 mg/dL (0.0-0.4); BILIRUBIN,TOTAL 0.6 mg/dL (0.2-1.3); BLOOD UREA NITROGEN 18 mg/dL (7-20); CALCIUM 9.1 mg/dL (8.4-10.2); CARBON DIOXIDE 26 mmol/L (22-30); CHLORIDE 105 mmol/L (98-107); CHOLESTEROL 155.26 mg/dL (0-200); GLUCOSE 112 mg/dL (75-110); POTASSIUM 4.2 mmol/L (3.6-5.0); TOTAL PROTEIN 7.7 g/dL (6.3-8.2); TRIGLYCERIDES 181 mg/dL (<150)
[2019-05-07 09:41] LABS: DIRECT LDL 93 mg/dL (<100)
[2019-05-07 09:45] LABS: VLDL CHOLESTEROL 36.2 mg/dL (10-31)
[2019-05-07 09:46] LABS: BLOOD UREA NITROGEN 18 mg/dL (7-20); CALCIUM 9.1 mg/dL (8.4-10.2); CARBON DIOXIDE 26 mmol/L (22-30); CHLORIDE 105 mmol/L (98-107); GLUCOSE 112 mg/dL (75-110); POTASSIUM 4.2 mmol/L (3.6-5.0)
[2019-05-07 09:47] LABS: ANION GAP 10 (5-19); CHOLESTEROL 155.26 mg/dL (0-200); DIRECT LDL 93 mg/dL (<100); TRIGLYCERIDES 181 mg/dL (<150); VLDL CHOLESTEROL 36.2 mg/dL (10-31)
== END ==
LOC: LAB 08:18
PROVIDERS: ATTEND Internal Medicine Cardiovascular Disease
DX: E78.2 Mixed hyperlipidemia (principal); I12.9 Hypertensive chronic kidney disease with stage 1 through stage 4 chronic kidney disease, or unspecified chronic kidney disease; N18.9 Chronic kidney disease, unspecified; J44.9 Chronic obstructive pulmonary disease, unspecified; R73.9 Hyperglycemia, unspecified; Z79.899 Other long term (current) drug therapy
CPT/HCPCS: 36415; 80048; 80061; 80076; 83036; 84460; 85025

== ENCOUNTER → 2019-05-14 | Outpatient (CLI) | payer MEDICARE, BC | LOC: LAB 10:05 | PROVIDERS: ATTEND Physician Assistant | DX: R25.2 Cramp and spasm (principal) | CPT/HCPCS: 36415; 83735 ==

== ENCOUNTER → 2019-08-03 | Outpatient (CLI) | payer MEDICARE, BC ==
[2019-08-03 09:00] LABS: CHOLESTEROL 150.96 mg/dL (0-200); TRIGLYCERIDES 211 mg/dL (<150)
[2019-08-03 09:14] LABS: DIRECT LDL 86 mg/dL (<100)
[2019-08-03 09:18] LABS: VLDL CHOLESTEROL 42.2 mg/dL (10-31)
== END ==
LOC: LAB 08:23
PROVIDERS: ATTEND Family Medicine Geriatric Medicine
DX: E78.5 Hyperlipidemia, unspecified (principal); Z79.899 Other long term (current) drug therapy
CPT/HCPCS: 36415; 80061; 84460

== ENCOUNTER 2019-08-23 23:49 | Emergency (ER) | payer OTHER, MEDICARE, BC ==
--- NOTE | 2019-08-24 00:54 | ER Document Report ---
ED Medical Screen (RME) - General Chief Complaint: Abdominal Pain Stated Complaint: ABDOMINAL PAIN Time Seen by Provider: 08/24/19 00:48 Primary Care Provider: GRACIELA POP MD [Primary Care Provider] - Follow up as needed Mode of Arrival: Ambulatory Information source: Patient Notes: 74-year-old male presented to ED for complaint of upper abdominal pain since abo ut 1030 tonight. He states he had did need more piece to about an hour before his pain started. He states he does have reflux and a hiatal hernia. He states he is on medications for that and is taking his medicines as he is supposed to. Patient is alert oriented respirations regular nonlabored. Patient states he is also had 2 heart attacks which he did not have any pain with., Second heart a ttack was in 1992. Patient does have hyperactive bowel sounds and clear lung sounds. I have greeted and performed a rapid initial assessment of this patient. A comprehensive ED assessment and evaluation of the patient, analysis of test results and completion of medical decision making process will be conducted by an additional ED providers. TRAVEL OUTSIDE OF THE [place] IN LAST 30 DAYS: No - Related Data Allergies/Adverse Reactions: bupivacaine HCl [From Marcaine] Adverse Reaction (Intermediate, Verified 04/09/19 07:21) Hypotension rofecoxib [From Vioxx] Adverse Reaction (Intermediate, Verified 04/09/19 07:21) Hepatic dysfunction Past Medical History - Past Medical History Cardiac Medical History: Reports: Hx Coronary Artery Disease, Hx Heart Attack - 1992, Hx Hypercholesterolemia, Hx Hypertension Pulmonary Medical History: Reports: Hx COPD, Hx Pneumonia - 2000 Denies: Hx Asthma, Hx Bronchitis, Hx Tuberculosis Neurological Medical History: Denies: Hx Cerebrovascular Accident, Hx Seizures Renal/ Medical History: Denies: Hx Peritoneal Dialysis GI Medical History: Reports: Hx Gastroesophageal Reflux Disease Musculoskeltal Medical History: Denies Hx Arthritis Psychiatric Medical History: Denies: Hx Depression Past Surgical History: Reports: Hx Abdominal Surgery, Hx Cardiac Surgery - Stents 2013, Hx Orthopedic Surgery - right hip replacement. Denies: Hx Pacemaker - Immunizations Hx Diphtheria, Pertussis, Tetanus Vaccination: No Physical Exam - Vital signs Vitals: Temp Pulse Resp BP Pulse Ox 97.5 F 59 L 20 189/95 H 100 08/24/19 00:07 08/24/19 00:07 08/24/19 00:07 08/24/19 00:07 08/24/19 00:07 Course - Vital Signs Vital signs: Temp Pulse Resp BP Pulse Ox 97.5 F 59 L 20 189/95 H 100 08/24/19 00:07 08/24/19 00:07 08/24/19 00:07 08/24/19 00:07 08/24/19 00:07 Doctor's Discharge - Discharge Referrals: GRACIELA POP MD [Primary Care Provider] - Follow up as needed
[2019-08-24 01:09] LABS: ABSOLUTE EOSINOPHILS # (AUTO) 0.3 10^3/uL (0.0-0.6); ABSOLUTE LYMPHOCYTES (AUTO) 1.3 10^3/uL (0.5-4.7); ABSOLUTE MONOCYTES (AUTO) 0.6 10^3/uL (0.1-1.4); BASOPHILS % (AUTO) 0.6 % (0-2); EOSINOPHILS % (AUTO) 4.6 % (0-6); HEMOGLOBIN 16.8 g/dL (13.5-17.0); TOTAL CELLS COUNTED % (AUTO) 100 %
[2019-08-24 01:16] LABS: ABSOLUTE NEUT (AUTO) 4.8 10^3/uL (1.7-8.2); HEMATOCRIT 47.4 % (37.9-51.0); LYMPHOCYTES % (AUTO) 18.2 % (13-45); MEAN CORPUSCULAR HEMOGLOBIN 32.2 pg (27.0-33.4); MEAN CORPUSCULAR HGB CONC 35.4 g/dL (32.0-36.0); MEAN CORPUSCULAR VOLUME 91 fl (80-97); MONOCYTES % (AUTO) 8.2 % (3-13); PLATELET COUNT 152 10^3/uL (150-450); RED BLOOD COUNT 5.21 10^6/uL (4.35-5.55); SEGMENTED NEUTROPHILS % (AUTO) 68.4 % (42-78)
[2019-08-24 01:20] LABS: APPEARANCE,URINE CLEAR; BILIRUBIN,URINE NEGATIVE (NEGATIVE); COLOR,URINE YELLOW; GLUCOSE, URINE NEGATIVE (NEGATIVE); KETONES,URINE NEGATIVE (NEGATIVE); PROTEIN,URINE NEGATIVE (NEGATIVE); URINE SPECIFIC GRAVITY 1.013; UROBILINOGEN,URINE NEGATIVE mg/dL (<2.0)
[2019-08-24 01:24] LABS: ALBUMIN 4.4 g/dL (3.5-5.0); ALKALINE PHOSPHATASE 92 U/L (38-126); ANION GAP 8 (5-19); ASPARTATE AMINO TRANSFERASE 31 U/L (17-59); BILIRUBIN,TOTAL 0.5 mg/dL (0.2-1.3); BLOOD UREA NITROGEN 23 mg/dL (7-20); CALCIUM 9.3 mg/dL (8.4-10.2); CARBON DIOXIDE 29 mmol/L (22-30); CHLORIDE 104 mmol/L (98-107); GLUCOSE 133 mg/dL (75-110); POTASSIUM 4.6 mmol/L (3.6-5.0); TOTAL PROTEIN 7.7 g/dL (6.3-8.2)
--- NOTE | 2019-08-24 02:06 | RADIOLOGY REPORT (SQ) ---
Ultrasound right upper quadrant on 08/24/2019 at 1:23 AM CLINICAL INDICATION: Upper abdominal pain COMPARISON: CT from 01/19/2019 FINDINGS: Multiple sonographic images are obtained throughout the right upper quadrant, both transverse and sagittal images are obtained. Limited visualized pancreas is unremarkable. Visualized liver is homogeneous without focal liver lesion or evidence of intrahepatic biliary ductal dilatation. Tiny gallbladder polyp is noted. No gallstones, gallbladder wall thickening or pericholecystic fluid is noted. Common duct measures 4 mm which is within normal limits mitigating against obstruction of the biliary tree. Right kidney shows no hydronephrosis. IMPRESSION: Essentially unremarkable exam.
[2019-08-24] MEDS ORDERED: KETOROLAC TROMETHAMINE 60 MG/2 ML SDV IM ONE (03:05)
[2019-08-24] MEDS ORDERED: LIDOCAINE 2% VISCOUS SOLN 15 ML UDCUP PO ONE (03:41)
[2019-08-24] MEDS ORDERED: MAG HYDROX/AL HYDROX/SIMETH SUSP 30 ML UDCUP PO ONE (03:42)
[2019-08-24] MEDS ORDERED: FAMOTIDINE 40 MG/5 ML SUSP 50 ML PO ONE (03:43)
--- NOTE | 2019-08-24 03:44 | ER Document Report ---
Entered by PAUL KELLEY SCRIBE 08/24/19 0245 Acting as scribe for:JOSH KEENAN IV, MD ED GI/ - General Chief Complaint: Abdominal Pain Stated Complaint: ABDOMINAL PAIN Time Seen by Provider: 08/24/19 00:48 Primary Care Provider: GRACIELA POP MD [Primary Care Provider] - Follow up as needed Mode of Arrival: Ambulatory Information source: Patient Notes: This 74 year old male patient with a history of hiatal hernia presents to the ED today with complaints of upper abdominal pain that began around 2230 last night. Patient states that the symptoms feel similar to when he had a hernia. at bedside states that the patient was prescribed Omeprazole the last time he had a hernia. Patient reports a history of GERD and states that he is compliant with those medications. Patient states that he is irritated due to the wait in the lobby and that he just wants some pain medication so he can go home. Patient denies nausea or vomiting. TRAVEL OUTSIDE OF THE [place] IN LAST 30 DAYS: No - Related Data Allergies/Adverse Reactions: bupivacaine HCl [From Marcaine] Adverse Reaction (Intermediate, Verified 04/09/19 07:21) Hypotension rofecoxib [From Vioxx] Adverse Reaction (Intermediate, Verified 04/09/19 07:21) Hepatic dysfunction Home Medications: Trelegy. Lisinopril. carvedilol. omeprazole. ASA. fluticasone. Levocetirizine. Atorvastatin. Vitamin D Past Medical History - General Information source: Patient - Social History Smoking Status: Never Smoker Cigarette use (# per day): No Chew tobacco use (# tins/day): No Smoking Education Provided: No Frequency of alcohol use: None Drug Abuse: None Family History: Reviewed & Not Pertinent Patient has suicidal ideation: No Patient has homicidal ideation: No - Past Medical History Cardiac Medical History: Reports: Hx Coronary Artery Disease, Hx Heart Attack - 1992, Hx Hypercholesterolemia, Hx Hypertension Pulmonary Medical History: Reports: Hx COPD, Hx Pneumonia - 2000 GI Medical History: Reports: Hx Gastroesophageal Reflux Disease Past Surgical History: Reports: Hx Abdominal Surgery, Hx Cardiac Surgery - Stents 2013, Hx Orthopedic Surgery - right hip replacement - Immunizations Hx Diphtheria, Pertussis, Tetanus Vaccination: No Hx Pneumococcal Vaccination: 06/05/14 Review of Systems - Review of Systems Constitutional: No symptoms reported EENT: No symptoms reported Cardiovascular: No symptoms reported Respiratory: No symptoms reported Gastrointestinal: See HPI, Abdominal pain. denies: Nausea, Vomiting Genitourinary: No symptoms reported Male Genitourinary: No symptoms reported Musculoskeletal: No symptoms reported Skin: No symptoms reported Hematologic/Lymphatic: No symptoms reported Neurological/Psychological: No symptoms reported -: Yes All other systems reviewed and negative Physical Exam - Vital signs Vitals: Temp Pulse Resp BP Pulse Ox 97.5 F 59 L 20 189/95 H 100 08/24/19 00:07 08/24/19 00:07 08/24/19 00:07 08/24/19 00:07 08/24/19 00:07 - General General appearance: Other - Patient is sitting up in no acute distress. Patient is short, agitated, and belligerent. In distress: None - HEENT Head: Normocephalic, Atraumatic Eyes: Normal Pupils: PERRL - Respiratory Respiratory status: No respiratory distress Chest status: Nontender Breath sounds: Normal Chest palpation: Normal - Cardiovascular Rhythm: Regular Heart sounds: Normal auscultation Murmur: No - Abdominal Inspection: Normal Distension: No distension Bowel sounds: Normal Tenderness: Nontender - Abdomen soft Organomegaly: No organomegaly - Back Back: Normal, Nontender - Extremities General upper extremity: Normal inspection General lower extremity: Normal inspection - Neurological Neuro grossly intact: Yes - Psychological Associated symptoms: Agitated - Skin Skin Temperature: Warm Skin Moisture: Dry Skin Color: Normal Course - Re-evaluation Re-evalutation: 08/24/19 03:07 Results of ED MSE discussed with patient and patient's family. Emergency signs and symptoms, reasons to return to the emergency department discussed with patient. 08/24/19 04:26 Nurse report patient feels better after GI cocktail. - Vital Signs Vital signs: Temp Pulse Resp BP Pulse Ox 97.5 F 60 16 176/91 H 93 08/24/19 00:07 08/24/19 03:10 08/24/19 03:10 08/24/19 03:10 08/24/19 03:10 - Laboratory Result Diagrams: 08/24/19 00:55 08/24/19 00:55 Laboratory results interpreted by me: 08/24/19 00:55 BUN 23 H Creatinine 1.53 H Est GFR ( Amer) 54 L Est GFR (MDRD) Non-Af 45 L Glucose 133 H - Diagnostic Test Radiology reviewed: Reports reviewed Discharge - Discharge Clinical Impression: Abdominal pain Qualifiers: Abdominal location: unspecified location Qualified Code(s): R10.9 - Unspecified abdominal pain Condition: Good Disposition: HOME, SELF-CARE Instructions: Abdominal Pain ([facility]) Additional Instructions: Return to the Emergency Department without delay if any worse. HOME CARE INSTRUCTIONS & INFORMATION: Thank you for choosing us for your medical needs. We hope you're satisfied with the care you received. After you leave, you must properly care for your problem and, at the same time, observe its progress. Any condition can change. Some illnesses can change rapidly over hours or days. If your condition worsens, return to the Emergency Department or see your physician promptly. ABOUT YOUR X-RAYS AND EKG'S: If you had an EKG or X-rays taken, they have been read by the Emergency Physician. The X-rays and EKG's will also be read by a Radiologist or Home Health Caregiver within 24 hours. If discrepancies are noted, you will be notified by telephone. Please be certain the ED has a correct telephone number & address where you can be reached. Also, realize that some fractures or abnormalities do not show up on initial X-rays. If your symptoms continue, see your physician. ABOUT YOUR LABORATORY TEST: If you had laboratory tests, the results have been reviewed by the Emergency Physician. Some test results (for example cultures) may not be available for several days. You will be contacted if any test result shows you need additional treatment. Please be certain the ED has a correct telephone number and address where you can be reached. ABOUT YOUR MEDICATIONS: You will receive instructions on how to take your medicine on the prescription label you receive. Additional information may be provided by the Pharmacy. If you have questions afterwards, call the ED for clarification or further instructions. Some prescribed medications may cause drowsiness. Do not perform tasks such as driving a car or operating machinery without consulting your Pharmacist. If you feel you need a refill of pain medication, your condition will need re-evaluation. Please do not call for a refill of any medication. ABOUT YOUR SIGNATURE: Signature of this document acknowledges to followin. Understanding that you received emergency treatment and that you may be released before al medical problems are known or treated. Please be certain the ED has a correct phone number & address where you can be reached. 2. Acknowledgement that you will arrange for follow-up care as recommended. 3. Authorization for the Emergency Physician to provide information to your follow-up Physician in order to maximize your care. AT ANY TIME, IF YOUR SYMPTOMS CHANGE SIGNIFICANTLY OR WORSEN OR YOU DEVELOP NEW SYMPTOMS, RETURN TO THE EMERGENCY DEPARTMENT IMMEDIATELY FOR RE-EVALUATION. OUR GOAL IS TO PROVIDE EXCELLENT MEDICAL CARE! WE HOPE THAT WE HAVE MET YOUR EXPECTATIONS DURING YOUR EMERGENCY DEPARTMENT VISIT AND THAT YOU FEEL YOU HAVE RECEIVED EXCELLENT CARE! Referrals: GRACIELA POP MD [Primary Care Provider] - Follow up as needed I personally performed the services described in the documentation, reviewed and edited the documentation which was dictated to the scribe in my presence, and it accurately records my words and actions.
[2019-08-24] MEDS ORDERED: FAMOTIDINE 20 MG TABLET PO ONE (03:48)
[2019-08-24 04:41] VITALS: BP 146/82
--- NOTE | 2019-08-24 13:54 | EKG REPORT ---
SEVERITY:- BORDERLINE ECG - SINUS RHYTHM CONSIDER INFERIOR INFARCT : Confirmed by: Alaina Lanza MD 24-Aug-2019 13:53:30
== END 2019-08-24 04:30 | disposition home or self-care (01) ==
LOC: ER 23:49
DX: R10.10 Upper abdominal pain, unspecified (principal); K21.9 Gastro-esophageal reflux disease without esophagitis; I25.10 Atherosclerotic heart disease of native coronary artery without angina pectoris; I25.2 Old myocardial infarction; E78.00 Pure hypercholesterolemia, unspecified; I10 Essential (primary) hypertension; J44.9 Chronic obstructive pulmonary disease, unspecified; Z79.51 Long term (current) use of inhaled steroids; Z79.899 Other long term (current) drug therapy; Z79.82 Long term (current) use of aspirin; Z95.5 Presence of coronary angioplasty implant and graft
CPT/HCPCS: 93005; 99284; 96372; 36415; 83690; 85025; 80053; 81001; 84484; 76705; 93010; J1885; J3490

== ENCOUNTER → 2019-09-20 | Outpatient (CLI) | payer MEDICARE, BC ==
[2019-09-20 09:39] LABS: ALBUMIN 4.2 g/dL (3.5-5.0); ALKALINE PHOSPHATASE 122 U/L (38-126); ANION GAP 10 (5-19); ASPARTATE AMINO TRANSFERASE 47 U/L (17-59); BILIRUBIN,DIRECT 0.3 mg/dL (0.0-0.4); BILIRUBIN,TOTAL 0.7 mg/dL (0.2-1.3); BLOOD UREA NITROGEN 20 mg/dL (7-20); CALCIUM 9.1 mg/dL (8.4-10.2); CARBON DIOXIDE 25 mmol/L (22-30); CHLORIDE 104 mmol/L (98-107); CHOLESTEROL 146.47 mg/dL (0-200); GLUCOSE 113 mg/dL (75-110); POTASSIUM 4.6 mmol/L (3.6-5.0); TOTAL PROTEIN 7.9 g/dL (6.3-8.2); TRIGLYCERIDES 269 mg/dL (<150)
[2019-09-20 09:50] LABS: DIRECT LDL 82 mg/dL (<100)
[2019-09-20 09:56] LABS: VLDL CHOLESTEROL 53.8 mg/dL (10-31)
== END ==
LOC: OD 08:43
PROVIDERS: ATTEND Physician Assistant
DX: E78.2 Mixed hyperlipidemia (principal); I10 Essential (primary) hypertension; Z79.899 Other long term (current) drug therapy
CPT/HCPCS: 36415; 80048; 80061; 80076

== ENCOUNTER → 2019-11-01 | Outpatient (CLI) | payer MEDICARE, BC ==
[2019-11-01 09:03] LABS: ALBUMIN 4.3 g/dL (3.5-5.0); ALKALINE PHOSPHATASE 91 U/L (38-126); ASPARTATE AMINO TRANSFERASE 32 U/L (17-59); BILIRUBIN,TOTAL 0.7 mg/dL (0.2-1.3); TOTAL PROTEIN 7.5 g/dL (6.3-8.2)
[2019-11-01 09:07] LABS: CHOLESTEROL 147.29 mg/dL (0-200); TRIGLYCERIDES 184 mg/dL (<150)
[2019-11-01 09:18] LABS: DIRECT LDL 82 mg/dL (<100)
[2019-11-01 09:23] LABS: VLDL CHOLESTEROL 36.8 mg/dL (10-31)
== END ==
LOC: OD 07:43
PROVIDERS: ATTEND Internal Medicine Cardiovascular Disease
DX: E78.5 Hyperlipidemia, unspecified (principal); R94.5 Abnormal results of liver function studies; Z79.899 Other long term (current) drug therapy
CPT/HCPCS: 36415; 80061; 80076; 83036; 84460

== ENCOUNTER 2019-11-02 07:44 | Emergency (ER) | payer MEDICARE, BC ==
[2019-11-02 08:29] LABS: HEMATOCRIT 49.6 % (37.9-51.0); HEMOGLOBIN 17.3 g/dL (13.5-17.0); MEAN CORPUSCULAR HEMOGLOBIN 32.2 pg (27.0-33.4); MEAN CORPUSCULAR HGB CONC 34.9 g/dL (32.0-36.0); MEAN CORPUSCULAR VOLUME 92 fl (80-97); PLATELET COUNT 158 10^3/uL (150-450); RED BLOOD COUNT 5.37 10^6/uL (4.35-5.55); RED CELL DISTRIBUTION WIDTH 14.3 % (11.5-14.0); WHITE BLOOD COUNT 16.2 10^3/uL (4.0-10.5)
[2019-11-02] MEDS ORDERED: MORPHINE SULFATE 10 MG/ML INJ IV ONE (08:34)
[2019-11-02] MEDS ORDERED: LISINOPRIL 10 MG TABLET PO ONE (08:34)
[2019-11-02] MEDS ORDERED: ONDANSETRON HCL INJ/PF 4 MG/2 ML SDV IV ONE (08:34)
--- NOTE | 2019-11-02 08:35 | ER Document Report ---
ED GI/ - General Chief Complaint: Abdominal Pain Stated Complaint: ABDOMINAL PAIN Time Seen by Provider: 11/02/19 08:26 Primary Care Provider: GRACIELA POP MD [Primary Care Provider] - Follow up as needed Notes: CHIEF COMPLAINT: Upper abdominal pain that began last night HPI: 74-year-old male with history of hypertension, AAA, colonic rupture with repair presenting for upper abdominal pain with nausea vomiting that began last night. States he has been moving his bowels. No fever. Threw up 2 times last night continues with upper abdominal discomfort denies chest pain shortness of breath. Patient unsure if he has had his gallbladder removed previously. Patient did not take his blood pressure medication today. States he takes lisinopril ROS: See HPI - all other systems were reviewed and are otherwise negative Constitutional: no fever Eyes: no drainage, no blurred vision ENT: no runny nose, no sore throat Cardiovascular: no chest pain Resp: no SOB, no cough GI: + vomiting, no diarrhea, + abdominal pain : no dysuria Integumentary: no rash Allergy: no hives Musculoskeletal: no extremity pain or swelling Neurological: no numbness/tingling, no weakness MEDICATIONS: I agree with the patient medications as charted by the RN. ALLERGIES: I agree with the allergies as charted by the RN. PAST MEDICAL HISTORY/PAST SURGICAL HISTORY: Reviewed and agree as charted by RN. SOCIAL HISTORY: Reviewed and agree as charted by RN. FAMILY HISTORY: No significant familial comorbid conditions directly related to patient complaint EXAM: Reviewed vital signs as charted by RN. CONSTITUTIONAL: Alert and oriented and responds appropriately to questions. Well-appearing; well-nourished, mild distress secondary to pain HEAD: Normocephalic; atraumatic EYES: PERRL; Conjunctivae clear, sclerae non-icteric ENT: normal nose; no rhinorrhea; moist mucous membranes; pharynx without lesions noted, no uvula edema or deviation, no tonsillar hypertrophy, phonation normal NECK: Supple without meningismus; non-tender; no cervical lymphadenopathy, no masses CARD: RRR; no murmurs, no clicks, no rubs, no gallops; symmetric distal pulses RESP: Normal chest excursion without splinting or tachypnea; breath sounds clear and equal bilaterally; no wheezes, no rhonchi, no rales, pulse oximetry 97% on room air not hypoxic ABD/GI: Normal bowel sounds; non-distended; soft, moderate tenderness through the epigastric as well as the right upper and left upper quadrants on palpation, no rebound, no guarding; no palpable organomegaly or masses. BACK: The back appears normal and is non-tender to palpation, there is no CVA tenderness EXT: Normal ROM in all joints; non-tender to palpation; no cyanosis, no effusio ns, no edema SKIN: Normal color for age and race; warm; dry; good turgor; no acute lesions noted NEURO: Moves all extremities equally; Motor and sensory function intact PSYCH: The patient's mood and manner are appropriate. Grooming and personal hygiene are appropriate. MDM: 74-year-old male with AAA history presenting with upper abdominal pain. Differential is large. Could include AAA, cholecystitis if patient has his gallbladder, bowel obstruction. Discussed with attending Dr. macario, will obtain CT imaging to evaluate for AAA versus other intra-abdominal pathologies will treat patient's pain, obtain screening labs including cardiac labs given the upper abdominal discomfort and patient history TRAVEL OUTSIDE OF THE [place] IN LAST 30 DAYS: No - Related Data Allergies/Adverse Reactions: bupivacaine HCl [From Marcaine] Adverse Reaction (Intermediate, Verified 11/02/19 08:07) Hypotension rofecoxib [From Vioxx] Adverse Reaction (Intermediate, Verified 11/02/19 08:07) Hepatic dysfunction Home Medications: prilosec. lisinopril. aspirin Past Medical History - Social History Smoking Status: Unknown if Ever Smoked Frequency of alcohol use: None Drug Abuse: None Family History: Reviewed & Not Pertinent Patient has homicidal ideation: No - Past Medical History Cardiac Medical History: Reports: Hx Coronary Artery Disease, Hx Heart Attack - 1992, Hx Hypercholesterolemia, Hx Hypertension Pulmonary Medical History: Reports: Hx COPD, Hx Pneumonia - 2000 Denies: Hx Asthma, Hx Bronchitis, Hx Tuberculosis Neurological Medical History: Denies: Hx Cerebrovascular Accident, Hx Seizures Renal/ Medical History: Denies: Hx Peritoneal Dialysis GI Medical History: Reports: Hx Gastroesophageal Reflux Disease Musculoskeletal Medical History: Denies Hx Arthritis Psychiatric Medical History: Denies: Hx Depression Past Surgical History: Reports: Hx Abdominal Surgery, Hx Cardiac Surgery - Stents 2013, Hx Orthopedic Surgery - right hip replacement. Denies: Hx Pacemaker - Immunizations Hx Diphtheria, Pertussis, Tetanus Vaccination: No Hx Pneumococcal Vaccination: 06/05/14 Physical Exam - Vital signs Vitals: Temp Pulse BP 98.0 F 91 169/92 H 11/02/19 07:50 11/02/19 07:50 11/02/19 07:50 Course - Re-evaluation Re-evalutation: 11/02/19 13:24 CT imaging did not show acute emergent abnormalities. Ultrasound did not show acute emergent abnormalities. Patient had a mild leukocytosis but urine does not show evidence of infection. No other lab abnormalities are noted that are actionable at this time. Patient did appear to have moderate constipation through the upper transverse colon, will give patient MiraLAX, have him follow- up with gastroenterology and PCP in the next 2 to 3 days for recheck and reevaluation. Discussed with Dr. Macario attending - Vital Signs Vital signs: Temp Pulse Resp BP Pulse Ox 98.5 F 91 19 148/81 H 95 11/02/19 08:01 11/02/19 07:50 11/02/19 11:00 11/02/19 09:01 11/02/19 11:00 - Laboratory Result Diagrams: 11/02/19 07:56 11/02/19 07:56 Laboratory results interpreted by me: 11/02/19 11/02/19 11/02/19 07:56 07:56 11:35 WBC 16.2 H Hgb 17.3 H RDW 14.3 H Seg Neuts % (Manual) 92 H Lymphocytes % (Manual) 5 L Abs Neuts (Manual) 14.9 H Glucose 156 H Urine Ketones TRACE H Urine Blood SMALL H Discharge - Discharge Clinical Impression: Abdominal pain, acute, epigastric Condition: Stable Disposition: HOME, SELF-CARE Additional Instructions: Lab work and imaging studies did not show definitive reason for your upper abdominal pain. Take MiraLAX to help with constipation, take Prilosec as prescribed. Follow-up closely with both your primary care provider and gastroenterology for further evaluation and treatment of symptoms call for appointment. Return for worsening pain vomiting or fever Prescriptions: Pantoprazole Sodium [Protonix [address] Tablet] 20 mg PO QAM #20 tablet. Referrals: GRACIELA POP MD [Primary Care Provider] - Follow up as needed FABY CATES MD [ACTIVE STAFF] - Follow up as needed
[2019-11-02 08:44] LABS: ALBUMIN 4.7 g/dL (3.5-5.0); ALKALINE PHOSPHATASE 111 U/L (38-126); ANION GAP 11 (5-19); ASPARTATE AMINO TRANSFERASE 35 U/L (17-59); BILIRUBIN,DIRECT 0.2 mg/dL (0.0-0.4); BILIRUBIN,TOTAL 1.3 mg/dL (0.2-1.3); BLOOD UREA NITROGEN 20 mg/dL (7-20); CALCIUM 9.9 mg/dL (8.4-10.2); CARBON DIOXIDE 25 mmol/L (22-30); CHLORIDE 102 mmol/L (98-107); GLUCOSE 156 mg/dL (75-110); POTASSIUM 4.7 mmol/L (3.6-5.0); TOTAL PROTEIN 8.2 g/dL (6.3-8.2)
[2019-11-02 08:50] LABS: ABSOLUTE LYMPHOCYTES# (MANUAL) 0.8 10^3/uL (0.5-4.7); ABSOLUTE MONOCYTES # (MANUAL) 0.5 10^3/uL (0.1-1.4); BASOPHILS % (MANUAL) 0 % (0-2); EOSINOPHILS % (MANUAL) 0 % (0-6); LYMPHOCYTES % (MANUAL) 5 % (13-45); MONOCYTES % (MANUAL) 3 % (3-13); SEGMENTED NEUTROPHILS % (MAN) 92 % (42-78); TOTAL CELLS COUNTED 100
[2019-11-02 08:51] LABS: ANISOCYTOSIS SLIGHT; PLATELET COMMENT ADEQUATE; TOXIC VACUOLATION PRESENT
--- NOTE | 2019-11-02 09:04 | RADIOLOGY REPORT (SQ) ---
EXAM DESCRIPTION: CHEST SINGLE VIEW IMAGES COMPLETED DATE/TIME: 11/02/2019 8:53 am REASON FOR STUDY: upper abd pain COMPARISON: 08/22/2018 EXAM PARAMETERS: NUMBER OF VIEWS: One view. TECHNIQUE: Single frontal radiographic view of the chest acquired. RADIATION DOSE: NA LIMITATIONS: None. FINDINGS: LUNGS AND PLEURA: No opacities, masses or pneumothorax. No pleural effusion. MEDIASTINUM AND HILAR STRUCTURES: No masses. Contour normal. HEART AND VASCULAR STRUCTURES: Heart normal in size. Normal vasculature. BONES: No acute findings. HARDWARE: None in the chest. OTHER: No other significant finding. IMPRESSION: NO ACUTE RADIOGRAPHIC FINDING IN THE CHEST. TECHNICAL DOCUMENTATION: JOB ID: [id number] 2010 [employer]- All Rights Reserved Reading location - IP/workstation name: [email or web address]
--- NOTE | 2019-11-02 09:04 | RADIOLOGY REPORT (SQ) ---
EXAM DESCRIPTION: KUB/ABDOMEN (SINGLE VIEW) IMAGES COMPLETED DATE/TIME: 11/02/2019 8:53 am REASON FOR STUDY: upper abd pain COMPARISON: 01/19/2019 NUMBER OF VIEWS: One view. TECHNIQUE: Supine radiographic image of the abdomen acquired. LIMITATIONS: None. FINDINGS: BOWEL GAS PATTERN: Normal bowel gas pattern. No dilated loops. CALCIFICATIONS: No suspicious calcifications. SOFT TISSUES: No gross mass or suggestion of organomegaly. HARDWARE: None in the abdomen. BONES: Prior total right hip replacement. No acute findings. OTHER: No other significant finding. IMPRESSION: NO RADIOGRAPHIC EVIDENCE FOR ACUTE ABDOMINAL DISEASE. TECHNICAL DOCUMENTATION: JOB ID: [id number] 2010 [employer]- All Rights Reserved Reading location - IP/workstation name: [email or web address]
--- NOTE | 2019-11-02 09:57 | RADIOLOGY REPORT (SQ) ---
EXAM DESCRIPTION: CT ABD/PELVIS WITH IV ONLY IMAGES COMPLETED DATE/TIME: 11/02/2019 9:37 am REASON FOR STUDY: upper abd pain/AAA hx COMPARISON: 01/19/2019 TECHNIQUE: CT scan of the abdomen and pelvis performed using helical scanning technique with dynamic intravenous contrast injection. No oral contrast. Images reviewed with lung, soft tissue, and bone windows. Reconstructed coronal and sagittal MPR images reviewed. Delayed images for evaluation of the urinary system also acquired. All images stored on PACS. All CT scanners at this facility use dose modulation, iterative reconstruction, and/or weight based d osing when appropriate to reduce radiation dose to as low as reasonably achievable (ALARA). [facility]: Dose Right [facility]: CareDose [facility]: Dose Right [facility]: Teradose 4D [facility]: [employer] CONTRAST TYPE AND DOSE: contrast/concentration: Isovue 350.00 mg/ml; Total Contrast Delivered: 99.0 ml; Total Saline Delivered: 70.0 ml RENAL FUNCTION: BUN 20, creatinine 1.11 RADIATION DOSE: CT Rad equipment meets quality standard of care and radiation dose reduction techniq ues were employed. CTDIvol: 10.9 - 15.5 mGy. DLP: 1623 mGy-cm.. LIMITATIONS: None. FINDINGS: LOWER CHEST: There is right lower lobe atelectasis. LIVER: Normal size. No masses. No dilated ducts. SPLEEN: Normal size. No focal lesions. PANCREAS: No masses. No significant calcifications. No adjacent inflammation or peripancreatic fluid collections. Pancreatic duct not dilated. GALLBLADDER: No identified stones by CT criteria. No inflammatory changes to suggest cholecystitis. ADRENAL GLANDS: No significant masses or asymmetry. RIGHT KIDNEY AND URETER: No solid masses. No significant calcifications. No hydronephrosis or hyd roureter. LEFT KIDNEY AND URETER: No solid masses. No significant calcifications. No hydronephrosis or hydr oureter. AORTA AND VESSELS: Abdominal aorta demonstrates atherosclerotic change. Largest diameter is 2.9 x 2. 8 cm. Minimal mural thrombus. RETROPERITONEUM: No retroperitoneal adenopathy, hemorrhage or masses. BOWEL AND PERITONEAL CAVITY: No masses or inflammatory changes. No free fluid or peritoneal masses. APPENDIX: Not visualized. PELVIS: No mass. No free fluid. Normal bladder. ABDOMINAL WALL: No masses. No hernias. BONES: No significant or acute findings. OTHER: No other significant finding. IMPRESSION: Atherosclerotic change in the abdominal aorta. Largest diameter is 2.9 x 2.8 cm. Pleas e see below for recommended follow-up. No other significant findings in the abdomen or pelvis. TECHNICAL DOCUMENTATION: JOB ID: [id number] Quality ID # [id number]: Final reports with documentation of one or more dose reduction techniques (e.g., Au tomated exposure control, adjustment of the mA and/or kV according to patient size, use of iterative reconstruction technique) 2010 [employer]- All Rights Reserved Reading location - IP/workstation name: [email or web address]
[2019-11-02 11:55] LABS: APPEARANCE,URINE CLEAR; BILIRUBIN,URINE NEGATIVE (NEGATIVE); COLOR,URINE YELLOW; GLUCOSE, URINE NEGATIVE (NEGATIVE); KETONES,URINE TRACE mg/dL (NEGATIVE); LEUKOCYTE ESTERASE,URINE NEGATIVE (NEGATIVE); NITRITE,URINE NEGATIVE (NEGATIVE); PROTEIN,URINE NEGATIVE (NEGATIVE); URINE SPECIFIC GRAVITY 1.048; UROBILINOGEN,URINE NEGATIVE mg/dL (<2.0)
--- NOTE | 2019-11-02 12:54 | EKG REPORT ---
SEVERITY:- ABNORMAL ECG - SINUS RHYTHM INFERIOR INFARCT, AGE INDETERMINATE : Confirmed by: Tano Silverio MD 02-Nov-2019 12:53:32
--- NOTE | 2019-11-02 13:17 | RADIOLOGY REPORT (SQ) ---
EXAM DESCRIPTION: U/S ABDOMEN LIMITED W/O DOP IMAGES COMPLETED DATE/TIME: 11/02/2019 1:09 pm REASON FOR STUDY: upper abd pain COMPARISON: 08/24/2019 TECHNIQUE: Dynamic and static grayscale images acquired of the abdomen and recorded on PACS. Additio nal selected color Doppler and spectral images recorded. LIMITATIONS: None. FINDINGS: PANCREAS: Pancreas is obscured by overlying bowel gas. LIVER: Limited physician of liver. No focal masses. The liver is echogenic consistent with fatty in filtration. LIVER VASCULATURE: Normal directional flow of the main portal vein and hepatic veins. GALLBLADDER: Small adherent stone versus polyp. No further workup is required. ULTRASOUND-DETECTED DOUGLASS'S SIGN: Negative. INTRAHEPATIC DUCTS AND COMMON DUCT: CBD and intrahepatic ducts normal caliber. No filling defects. INFERIOR VENA CAVA: Not visualized. AORTA: No aneurysm. RIGHT KIDNEY: Normal size. Normal echogenicity. No solid or suspicious masses. No hydronephrosis. No calcifications. PERITONEAL AND RIGHT PLEURAL SPACE: No ascites or effusions. OTHER: No other significant findings. IMPRESSION: Fatty infiltrated liver. No other significant findings. Study is limited by overlying bowel gas. TECHNICAL DOCUMENTATION: JOB ID: [id number] 2010 [employer]- All Rights Reserved Reading location - IP/workstation name: [email or web address]
[2019-11-02] MEDS ORDERED: CEFTRIAXONE 1 GM/D5W RTU 1 GM/50 ML RTUPB IV ONE (14:34)
[2019-11-02] MEDS ORDERED: LEVOFLOXACIN 750 MG TABLET PO ONE (14:34)
[2019-11-02] MEDS ORDERED: HYDROCODONE/ACETAMINOPHEN 5-325 MG TABLET PO ONE (14:35)
[2019-11-02 15:49] VITALS: BP 112/61
== END 2019-11-02 16:45 | disposition home or self-care (01) ==
LOC: ER 07:44
DX: J18.9 Pneumonia, unspecified organism (principal); R10.13 Epigastric pain; R11.10 Vomiting, unspecified; I25.10 Atherosclerotic heart disease of native coronary artery without angina pectoris; E78.00 Pure hypercholesterolemia, unspecified; Z96.641 Presence of right artificial hip joint; I25.2 Old myocardial infarction
CPT/HCPCS: 93005; 99285; 96375; 96365; 36415; 83690; 85025; 80053; 81001; 84484; 71045; 74018; 76705; 74177; 93010; J2270; J2405; A9270 ×3; J0696

== ENCOUNTER 2019-11-05 15:02 | Emergency (ER) | payer MEDICARE, BC ==
--- NOTE | 2019-11-05 15:46 | RADIOLOGY REPORT (SQ) ---
EXAM DESCRIPTION: CHEST SINGLE VIEW IMAGES COMPLETED DATE/TIME: 11/05/2019 3:35 pm REASON FOR STUDY: bed 6 difficulty breathing COMPARISON: AP view of the chest from 11/02/2019. EXAM PARAMETERS: NUMBER OF VIEWS: One view. TECHNIQUE: An AP view of the chest was obtained. RADIATION DOSE: NA LIMITATIONS: None. FINDINGS: LUNGS AND PLEURA: Bibasilar atelectasis. There is no acute consolidation, sizeable pleura l effusion or pneumothorax. MEDIASTINUM AND HILAR STRUCTURES: No mediastinal or hilar contour abnormality. HEART AND VASCULAR STRUCTURES: The cardiac silhouette and pulmonary vasculature are within normal arellano its. BONES: No acute findings. HARDWARE: None in the chest. OTHER: No other finding. IMPRESSION: Bibasilar atelectasis. TECHNICAL DOCUMENTATION: JOB ID: [id number] 2010 [employer]- All Rights Reserved Reading location - IP/workstation name: [email or web address]
[2019-11-05 16:03] LABS: ABSOLUTE EOSINOPHILS # (AUTO) 0.1 10^3/uL (0.0-0.6); ABSOLUTE LYMPHOCYTES (AUTO) 0.9 10^3/uL (0.5-4.7); ABSOLUTE MONOCYTES (AUTO) 0.9 10^3/uL (0.1-1.4); ABSOLUTE NEUT (AUTO) 9.4 10^3/uL (1.7-8.2); BASOPHILS % (AUTO) 0.3 % (0-2); EOSINOPHILS % (AUTO) 0.6 % (0-6); HEMATOCRIT 42.7 % (37.9-51.0); HEMOGLOBIN 14.9 g/dL (13.5-17.0); LYMPHOCYTES % (AUTO) 7.7 % (13-45); MEAN CORPUSCULAR HEMOGLOBIN 32.6 pg (27.0-33.4); MEAN CORPUSCULAR HGB CONC 34.8 g/dL (32.0-36.0); MEAN CORPUSCULAR VOLUME 94 fl (80-97); MONOCYTES % (AUTO) 8.2 % (3-13); PLATELET COUNT 159 10^3/uL (150-450); RED BLOOD COUNT 4.56 10^6/uL (4.35-5.55); RED CELL DISTRIBUTION WIDTH 14.2 % (11.5-14.0); SEGMENTED NEUTROPHILS % (AUTO) 83.2 % (42-78); TOTAL CELLS COUNTED % (AUTO) 100 %; WHITE BLOOD COUNT 11.3 10^3/uL (4.0-10.5)
[2019-11-05 16:40] LABS: CREATINE KINASE MB 0.94 ng/mL (<4.55)
[2019-11-05 16:42] LABS: TROPONIN I 0.035 ng/mL
[2019-11-05 16:53] LABS: ALBUMIN 3.5 g/dL (3.5-5.0); ALKALINE PHOSPHATASE 159 U/L (38-126); ANION GAP 10 (5-19); ASPARTATE AMINO TRANSFERASE 32 U/L (17-59); BILIRUBIN,DIRECT 0.3 mg/dL (0.0-0.4); BILIRUBIN,TOTAL 1.4 mg/dL (0.2-1.3); BLOOD UREA NITROGEN 22 mg/dL (7-20); CALCIUM 8.5 mg/dL (8.4-10.2); CARBON DIOXIDE 24 mmol/L (22-30); CHLORIDE 101 mmol/L (98-107); CREATINE KINASE 53 U/L (55-170); GLUCOSE 112 mg/dL (75-110); POTASSIUM 4.2 mmol/L (3.6-5.0); TOTAL PROTEIN 6.9 g/dL (6.3-8.2)
[2019-11-05 17:05] LABS: APPEARANCE,URINE CLEAR; BILIRUBIN,URINE NEGATIVE (NEGATIVE); COLOR,URINE YELLOW; GLUCOSE, URINE NEGATIVE (NEGATIVE); KETONES,URINE NEGATIVE (NEGATIVE); LEUKOCYTE ESTERASE,URINE NEGATIVE (NEGATIVE); NITRITE,URINE NEGATIVE (NEGATIVE); PROTEIN,URINE NEGATIVE (NEGATIVE); URINE SPECIFIC GRAVITY 1.008; UROBILINOGEN,URINE NEGATIVE mg/dL (<2.0)
--- NOTE | 2019-11-05 18:14 | ER Document Report ---
ED General - General Chief Complaint: Rib Pain Stated Complaint: SHORTNESS OF BREATH Time Seen by Provider: 11/05/19 17:55 Primary Care Provider: GRACIELA VITALE MD [Primary Care Provider] - Follow up as needed Mode of Arrival: Medic Information source: Emergency Med Personnel Notes: 74-year-old male arrives with chief complaint of being diagnosed with pneumonia and fever and abdominal pain on 01 November. He was placed on Levaquin at that time. Chest x-ray on 01 November and chest x-ray today are without any infiltrates. He does have atelectasis bilaterally. When patient flexes his legs no right lower quadrant pain is elicited. Patient saturations and heart rate and blood pressure were within normal limits on my exam at 1810. He was wondering why he was here so long and has not been seen. I advised him I was just told about his presence by 1 of the nursing staff. TRAVEL OUTSIDE OF THE [place] IN LAST 30 DAYS: No - HPI Onset: Other - last .. 1 day after changing blades on his riding lawnmower.. Patient reports it hurts when he rotates to the left and his right mid abdominal musculature. He denies any fevers cough dysuria hematuria and he was wondering what he is doing here after he was evaluated by Dr. Vitale in his office who advised him to get a COVID 19 test and to come to the hospital. Patient is quite agitated and would like to leave. - Related Data Allergies/Adverse Reactions: bupivacaine HCl [From Marcaine] Adverse Reaction (Intermediate, Verified 11/02/19 08:07) Hypotension rofecoxib [From Vioxx] Adverse Reaction (Intermediate, Verified 11/02/19 08:07) Hepatic dysfunction Home Medications: Pantaprazole, Carvedilol, Lisinopril, Plavix Past Medical History - General Information source: Patient - Social History Smoking Status: Unknown if Ever Smoked Cigarette use (# per day): No Chew tobacco use (# tins/day): No Smoking Education Provided: No Frequency of alcohol use: None Drug Abuse: None Lives with: Family Family History: Reviewed & Not Pertinent Patient has homicidal ideation: No - Past Medical History Cardiac Medical History: Reports: Hx Coronary Artery Disease, Hx Heart Attack - 1992, Hx Hypercholesterolemia, Hx Hypertension Pulmonary Medical History: Reports: Hx COPD, Hx Pneumonia - 2000 Denies: Hx Asthma, Hx Bronchitis, Hx Tuberculosis Neurological Medical History: Denies: Hx Cerebrovascular Accident, Hx Seizures Renal/ Medical History: Denies: Hx Peritoneal Dialysis GI Medical History: Reports: Hx Gastroesophageal Reflux Disease Musculoskeletal Medical History: Denies Hx Arthritis Psychiatric Medical History: Denies: Hx Depression Past Surgical History: Reports: Hx Abdominal Surgery, Hx Cardiac Surgery - Stents 2013, Hx Orthopedic Surgery - right hip replacement. Denies: Hx Pacemaker - Immunizations Hx Diphtheria, Pertussis, Tetanus Vaccination: No Hx Pneumococcal Vaccination: 06/05/14 Review of Systems - Review of Systems Constitutional: See HPI, Fever EENT: No symptoms reported Cardiovascular: No symptoms reported Respiratory: No symptoms reported Gastrointestinal: See HPI, Abdominal pain Genitourinary: No symptoms reported Male Genitourinary: No symptoms reported Musculoskeletal: No symptoms reported Skin: No symptoms reported Hematologic/Lymphatic: No symptoms reported Neurological/Psychological: No symptoms reported Physical Exam - Vital signs Vitals: Pulse Ox 95 11/05/19 15:38 Interpretation: Normal - General General appearance: Appears well - HEENT Head: Normocephalic, Atraumatic Eyes: Normal Pupils: PERRL Pharynx: Normal Neck: Normal - Respiratory Respiratory status: No respiratory distress Chest status: Nontender Breath sounds: Normal Chest palpation: Normal - Cardiovascular Rhythm: Regular Heart sounds: Normal auscultation Murmur: No - Abdominal Inspection: Normal Distension: No distension Bowel sounds: Hyperactive - Borb[place]gmi all quadrants Tenderness: Tender - Between right upper and right lower abdominal musculature on palpation and range of motion.. I suspect patient has muscular injury from when he was changing his lawnmower blades and I did do not believe this was from appendicitis or pneumonia. - Back Back: Normal - Extremities General upper extremity: Normal inspection General lower extremity: Normal inspection - Neurological Neuro grossly intact: Yes Cognition: Normal Orientation: AAOx4 [place] Coma Scale Eye Opening: Spontaneous Ana Coma Scale Verbal: Oriented [place] Coma Scale Motor: Obeys Commands [place] Coma Scale Total: 15 Speech: Normal Motor strength normal: LUE, RUE, LLE, RLE Sensory: Normal - Psychological Associated symptoms: Normal affect - Skin Skin Temperature: Warm Skin Moisture: Dry Course - Vital Signs Vital signs: Temp Pulse Resp BP Pulse Ox 99.6 F 16 124/77 93 11/05/19 15:54 11/05/19 17:01 11/05/19 17:00 11/05/19 17:00 - Laboratory Result Diagrams: 11/05/19 15:40 11/05/19 15:40 Laboratory results interpreted by me: 11/05/19 11/05/19 15:40 15:40 WBC 11.3 H RDW 14.2 H Lymph % (Auto) 7.7 L Absolute Neuts (auto) 9.4 H Seg Neutrophils % 83.2 H Sodium 134.5 L BUN 22 H Creatinine 1.40 H Est GFR (MDRD) Non-Af 50 L Glucose 112 H Total Bilirubin 1.4 H Alkaline Phosphatase 159 H Creatine Kinase 53 L - Diagnostic Test Radiology reviewed: Reports reviewed - neg cxr per radiology Critical Care Note - Critical Care Note Total time excluding time spent on procedures (mins): 60 Comments: I will honor the request from his physician for a COVID 19 test. Otherwise he may need follow-up with his personal doctor tomorrow Discharge - Discharge Clinical Impression: low grade temperature Abdominal muscle strain Qualifiers: Encounter type: sequela Qualified Code(s): S39.011S - Strain of muscle, fascia and tendon of abdomen, sequela Condition: Good Disposition: HOME, SELF-CARE Additional Instructions: Follow-up with your personal doctor tomorrow return to ER as needed take medicines as directed encourage fluids and take a probiotic while taking your Levaquin. Avoid lifting bending or twisting because I suspect muscular injury on your abdomen. Referrals: GRACIELA VITALE MD [Primary Care Provider] - Follow up as needed
[2019-11-05 19:49] VITALS: BP 128/52
--- NOTE | 2019-11-07 20:42 | EKG REPORT ---
SEVERITY:- NORMAL ECG - SINUS RHYTHM : Confirmed by: Eve Duarte 07-Nov-2019 20:41:43
== END 2019-11-05 19:50 | disposition home or self-care (01) ==
LOC: ER 15:02
DX: Z20.828 Contact with and (suspected) exposure to other viral communicable diseases (principal); S39.0 Injury of muscle, fascia and tendon of abdomen, lower back and pelvis; X58.XXXS Exposure to other specified factors, sequela; R50.9 Fever, unspecified; R07.81 Pleurodynia; Z96.641 Presence of right artificial hip joint
CPT/HCPCS: 93005; 99285; 36415; 82553; 82550; 85025; 80053; 81001; 84484; 71045; 93010; U0003; 87635

== ENCOUNTER → 2019-11-29 | Outpatient (CLI) | payer MEDICARE, BC ==
--- NOTE | 2019-11-29 12:20 | RADIOLOGY REPORT (SQ) ---
EXAM DESCRIPTION: CHEST PA/LATERAL IMAGES COMPLETED DATE/TIME: 11/29/2019 11:25 am REASON FOR STUDY: ATELECTASIS COMPARISON: 11/05/2019 EXAM PARAMETERS: NUMBER OF VIEWS: two views TECHNIQUE: Digital Frontal and Lateral radiographic views of the chest acquired. RADIATION DOSE: NA LIMITATIONS: none FINDINGS: LUNGS AND PLEURA: Minimal linear atelectasis in the lung bases. No acute infiltrate, effu maria esther, or mass. MEDIASTINUM AND HILAR STRUCTURES: No masses or contour abnormalities. HEART AND VASCULAR STRUCTURES: Heart normal size. No evidence for failure. BONES: No acute findings. HARDWARE: None in the chest. OTHER: No other significant finding. IMPRESSION: Minimal bibasilar atelectasis. No acute findings. TECHNICAL DOCUMENTATION: JOB ID: [id number] 2010 [id number]- All Rights Reserved Reading location - IP/workstation name: [email or web address]
== END ==
LOC: OD 11:02
PROVIDERS: ATTEND Family Medicine Geriatric Medicine
DX: R10.9 Unspecified abdominal pain (principal); J98.11 Atelectasis
CPT/HCPCS: 71046

== ENCOUNTER → 2020-02-20 | Outpatient (CLI) | payer MEDICARE, BC, OTHER ==
[2020-02-20 10:30] VITALS: BP 98/55
--- NOTE | 2020-02-20 10:30 | ER RDC ASSESSMENT REPORT ---
Intake - In the Last 14 days Have you traveled outside [place]?: No Have you been in close contact with someone CONFIRMED: No Worked in Healthcare?: No - Symptoms Subjective Fever([place] feverish): Yes --How many day(s)?: Patient reports fever of 101.8 last night. Chills: No Muscule Aches: No Runny Nose: Yes Sore Throat: Yes Cough (New or worsening chronic cough): Yes Shortness of breath: No Nausea or Vomiting: No Headache: No Abdominal Pain: No Diarrhea(3 or more loose stools in last 24 hours): No - Do you have any of the following Chronic lung disease: Asthma or emphysema or COPD: Yes Chronic Lung Disease Comment: History of COPD. Diabetes: No High Blood Pressure: No Cardiovascular Disease: Yes Chronic Kidney Disease: Yes Chronic Liver Disease: Yes Chronic blood disorder like Sickle Cell Disease: No Weak immune system due to disease or medication: No Neurologic condition that limits movement: No Developmental delay - Moderate to Severe: No Recent (within past 2 weeks) or current : No Morbid Obesity (>100 pounds over ideal weight): No Obesity Comment: Height 5 feet 7 inches weight 186 pounds. - Objective Temperature: 96.3 F Pulse Rate: 60 Respiratory Rate: 16 Blood Pressure: 98/55 O2 Sat by Pulse Oximetry: 95 Objective: Given above, testing performed: If Testing Performed: Test Specimen Type Sent to General - General Information source: Patient Notes: Patient here at [facility] for COVID testing patient has a cough consistent with history of COPD patient though reports started having a fever last night of 101.8. Denies having fever today. Denies also being exposed to anyone known for COVID. Patient's PCP is Dr. Vitale and plans to call follow-up with him today - Related Data Allergies/Adverse Reactions: bupivacaine HCl [From Marcaine] Adverse Reaction (Intermediate, Verified 11/02/19 08:07) Hypotension rofecoxib [From Vioxx] Adverse Reaction (Intermediate, Verified 11/02/19 08:07) Hepatic dysfunction Past Medical History - General Information source: Patient - Social History Smoking Status: Former Smoker - Stop smoking in 1992 Family History: Reviewed & Not Pertinent - Past Medical History Cardiac Medical History: Reports: Hx Coronary Artery Disease, Hx Heart Attack - 1992, Hx Hypercholesterolemia, Hx Hypertension Pulmonary Medical History: Reports: Hx COPD, Hx Pneumonia - 2000 Denies: Hx Asthma, Hx Bronchitis, Hx Tuberculosis Neurological Medical History: Denies: Hx Cerebrovascular Accident, Hx Seizures Renal/ Medical History: Denies: Hx Peritoneal Dialysis GI Medical History: Reports: Hx Gastroesophageal Reflux Disease Musculoskeletal Medical History: Denies Hx Arthritis Psychiatric Medical History: Denies: Hx Depression Past Surgical History: Reports: Hx Abdominal Surgery, Hx Cardiac Surgery - Stents 2013, Hx Orthopedic Surgery - right hip replacement. Denies: Hx Pacemaker Physical Exam - General General appearance: Appears well, Alert In distress: None Notes: PHYSICAL EXAMINATION: GENERAL: Well-appearing and in no acute distress. HEAD: Atraumatic, normocephalic. EYES: sclera anicteric, conjunctiva are normal. ENT: nares patent. Moist mucous membranes. NECK: Normal range of motion, supple without lymphadenopathy LUNGS: CTAB and equal. No wheezes rales or rhonchi. Rations even and unlabored lung sounds clear. HEART: Regular rate and rhythm without murmurs ABDOMEN: Soft, nontender, normal bowel sounds, no guarding. EXTREMITIES: No cyanosis. NEUROLOGICAL: Normal speech. PSYCH: Normal mood, normal affect. SKIN: Warm, Dry, normal turgor, Diagnostic Results Laboratory Results: Patient informed of negative rapid strep results. Pending strep culture. Pending cover testing results. Patient provided instructions regarding coverage to include: As a person under investigation for Covid 19, the [place] department of Health and Human Services, division of public health advises you to adhere to the following guidance until your test results are reported to you. If your test result is positive, you will receive additional information from your provider and your local health department at that time. Remain at home until you are cleared by the health provider or public health authorities. Keep a log of visitors to your home, notify any visitors to your home of your isolation status. If you plan to move to a new address or leave the county, notify the local health department in your County. Call your doctor or seek care if you have an urgent medical need. Before seeking medical care, call ahead to get instructions from the provider before arriving at the medical office clinic or hospital. Notify them that you are being tested for the virus that causes Covid 19 so that arrangements can be made, as necessary, to prevent transmission to others in the healthcare setting. Next, notify the local health department in your county. If a medical emergency arises and you need to call 911, inform the first responders that you are being tested for the virus that causes Covid 19. Next, notify the local health department in your county. Patient Education/Counseling Counseling/Education: Patient presents with upper respiratory symptoms worrisome for possible Covid 19. Patient does not have emergency worring symptoms such as difficulty breathing, shortness of breath, chest pain, pressure, confusion or cyanosis. Patient appears suitable for discharge. Patient instructed to follow-up with PCP Dr. Winifred kingston. To ED for persistent or worsening symptoms. Patient's vital signs are stable and patient is nontoxic in appearance. Good return precautions have been discussed with patient, patient verbalized understanding and is agreeable with discharge plan of care at this time. RDC Discharge - Discharge Condition: Stable Disposition: Home; Selfcare
== END ==
LOC: RDC 09:28
PROVIDERS: ATTEND Nurse Practitioner Family
DX: U07.1 COVID-19 (principal); R50.9 Fever, unspecified; J02.9 Acute pharyngitis, unspecified; R09.89 Other specified symptoms and signs involving the circulatory and respiratory systems; R05 Cough; J44.9 Chronic obstructive pulmonary disease, unspecified; Z87.891 Personal history of nicotine dependence; K21.9 Gastro-esophageal reflux disease without esophagitis; I10 Essential (primary) hypertension
CPT/HCPCS: 87070; 87880; 99201; U0003; G0463; C9803; 87635; 99211

== ENCOUNTER 2020-02-22 17:02 | Emergency (ER) | payer MEDICARE, BC, OTHER ==
[2020-02-22 17:41] VITALS: BP 104/55
--- NOTE | 2020-02-22 17:41 | ER Document Report ---
ED General - General Chief Complaint: Nonproductive Cough Stated Complaint: LOW BLOOD PRESSURE Primary Care Provider: GRACIELA POP MD [Primary Care Provider] - Follow up as needed Notes: Patient is a 74-year-old white male with a history of COPD and hypertension who presents to the emergency department the chief complaint of cough. He states this is been for several days. He was tested about 2 days ago for COVID-19 and was found to be positive. States he called his doctor today over the phone to discuss a cough that is been lingering from the same time. Reports the cough feels productive but nothing comes up. States while speaking with the staff at his doctor's office over the phone they recommended he come to the emergency department for an x-ray. Patient states "I feel fine". He denies any difficulty breathing, chest pain, weakness, near syncope or syncope, extremity weakness, numbness, tingling, fever, sore throat, rash, skin color changes, headache or any other pain, complaint or concern. He states with the exception of the slight cough he feels well. TRAVEL OUTSIDE OF THE [place] IN LAST 30 DAYS: No - Related Data Allergies/Adverse Reactions: bupivacaine HCl [From Marcaine] Adverse Reaction (Intermediate, Verified 11/02/19 08:07) Hypotension rofecoxib [From Vioxx] Adverse Reaction (Intermediate, Verified 11/02/19 08:07) Hepatic dysfunction Home Medications: proair, mucinex, terlegy, lisinopril, carvedilol, plavix, asa, atorvastatin, xyzal, flonase Past Medical History - Social History Smoking Status: Former Smoker Frequency of alcohol use: None Drug Abuse: None Family History: Reviewed & Not Pertinent - Past Medical History Cardiac Medical History: Reports: Hx Coronary Artery Disease, Hx Heart Attack - 1992, Hx Hypercholesterolemia, Hx Hypertension Pulmonary Medical History: Reports: Hx COPD, Hx Pneumonia - 2000 Denies: Hx Asthma, Hx Bronchitis, Hx Tuberculosis Neurological Medical History: Denies: Hx Cerebrovascular Accident, Hx Seizures Renal/ Medical History: Denies: Hx Peritoneal Dialysis GI Medical History: Reports: Hx Gastroesophageal Reflux Disease Musculoskeletal Medical History: Denies Hx Arthritis Psychiatric Medical History: Denies: Hx Depression Past Surgical History: Reports: Hx Abdominal Surgery, Hx Cardiac Surgery - Stents 2013, Hx Orthopedic Surgery - right hip replacement. Denies: Hx Pacemaker - Immunizations Hx Diphtheria, Pertussis, Tetanus Vaccination: No Hx Pneumococcal Vaccination: 06/05/14 Review of Systems - Review of Systems Constitutional: denies: Fever EENT: denies: Throat pain Cardiovascular: denies: Syncope Respiratory: denies: Short of breath Gastrointestinal: denies: Vomiting Genitourinary: denies: Pain Male Genitourinary: denies: Penile discharge Musculoskeletal: denies: Joint swelling Skin: denies: Rash Hematologic/Lymphatic: denies: Easy bleeding Neurological/Psychological: denies: Headaches Physical Exam - Vital signs Vitals: Temp 98.6 F 02/22/20 17:25 - General General appearance: Appears well, Alert In distress: None Notes: Speaking in full sentences. Nontoxic - HEENT Head: Normocephalic, Atraumatic Eyes: Normal Conjunctiva: Normal - Respiratory Respiratory status: No respiratory distress. No: Labored, Retractions, Tachypnea, Tripod position - Cardiovascular Notes: No extremity cyanosis noted. Heart rate in the high 50s on vitals - Extremities General upper extremity: Normal color. No: Edema General lower extremity: Normal color. No: Edema - Neurological Neuro grossly intact: Yes Cognition: Normal Orientation: AAOx4 [place] Coma Scale Eye Opening: Spontaneous [place] Coma Scale Verbal: Oriented [place] Coma Scale Motor: Obeys Commands [place] Coma Scale Total: 15 Speech: Normal - Psychological Associated symptoms: Normal affect, Normal mood - Skin Skin Color: Other - Exposed skin normal to visualization Course - Re-evaluation Re-evalutation: 02/22/20 17:44 Incidentally noted was the patient's blood pressure and pulse rate. Heart rate of 55 on intake. Review of the patient's records show that since 2018 the patient's normal average pulse rates tend to be in the high 50s similar to this range. As well comparatively his blood pressure was 104/55. 2 days prior during the COVID testing he was 98/55. This has obviously improved since. A review of his records regarding his blood pressures also show that since 2018 and 2019 his blood pressures have 20 trended largely towards normotensive to low 100s over 60s. This seems to be around the new average for the patient from the 2018 2019 trends. Suspect onset of new antihypertensives during this. Which have likely lowered the patient's heart rate and blood pressure chronically to these new averages as the averages prior to 2019 were significantly higher. Patient denies any blood pressure related complaints here. States he was told he had COVID-19 and his had strep throat. States he was sent here for a chest x-ray because of the cough related to COVID-19 from his primary doctor to rule out pneumonia. States he otherwise feels very well. 02/22/20 18:15 Chest x-ray negative for any acute process per radiologist. Patient does not have pneumonia as his PCP was worried. We discussed the respiratory nature of COVID-19 with a likely worsening of his chronic COPD thereby explaining the cough. Recommended cough suppressant medications [id number] for symptomatic management as needed per label instructions or to contact his PCP to follow-up and let him know the x-ray was negative and perhaps he would like to recommend a cough medicine regimen tailored to his patient. At this point the patient is stable and appropriate appearing. He is in no acute distress. He is appropriate for discharge and outpatient follow-up. We discussed the importance of supporting his immune system, hydration and rest. Discussed the importance of close outpatient communication with his primary care provider and advised that he return here or any ER immediately with any new, persistent or worsening symptoms. He verbalized understood and agreed. - Vital Signs Vital signs: Temp Pulse Resp BP Pulse Ox 98.6 F 55 L 18 104/55 L 92 02/22/20 17:32 02/22/20 17:32 02/22/20 17:32 02/22/20 17:32 02/22/20 17:32 Discharge - Discharge Clinical Impression: COVID-19, Cough Condition: Stable Disposition: HOME, SELF-CARE Instructions: COVID-19 Guidance for Persons Under Investigation Additional Instructions: Follow-up with your regular doctor in 2 to 3 days for reevaluation. Return here or any ER immediately with any new, persistent or worsening symptoms. Referrals: GRACIELA POP MD [Primary Care Provider] - Follow up as needed
--- NOTE | 2020-02-22 17:53 | RADIOLOGY REPORT (SQ) ---
EXAM DESCRIPTION: CHEST SINGLE VIEW IMAGES COMPLETED DATE/TIME: 02/22/2020 5:40 pm REASON FOR STUDY: cough COMPARISON: 11/29/2019 EXAM PARAMETERS: NUMBER OF VIEWS: One view. TECHNIQUE: Single frontal radiographic view of the chest acquired. RADIATION DOSE: NA LIMITATIONS: None. FINDINGS: LUNGS AND PLEURA: Minimal to very slight bibasilar atelectasis. No acute pulmonary conso lidation. No pneumothorax or pleural effusion. MEDIASTINUM AND HILAR STRUCTURES: No masses. Contour normal. HEART AND VASCULAR STRUCTURES: Heart normal in size. Normal vasculature. BONES: No acute findings. HARDWARE: None in the chest. OTHER: No other significant finding. IMPRESSION: 1. No significant interval changes since the previous examination dated 11/29/2019. Biba silar atelectasis again noted. TECHNICAL DOCUMENTATION: JOB ID: [id number] [employer]- All Rights Reserved Reading location - IP/workstation name: [email or web address]
== END 2020-02-22 18:25 | disposition home or self-care (01) ==
LOC: ER 17:02
DX: U07.1 COVID-19 (principal); R05 Cough; J44.9 Chronic obstructive pulmonary disease, unspecified; I10 Essential (primary) hypertension; Z88.8 Allergy status to other drugs, medicaments and biological substances; Z79.899 Other long term (current) drug therapy; Z79.02 Long term (current) use of antithrombotics/antiplatelets; Z79.82 Long term (current) use of aspirin; Z87.891 Personal history of nicotine dependence; I25.10 Atherosclerotic heart disease of native coronary artery without angina pectoris; I25.2 Old myocardial infarction
CPT/HCPCS: 71045; 99283

== ENCOUNTER 2020-02-25 11:40 | Emergency (ER) | payer OTHER, MEDICARE ==
--- NOTE | 2020-02-25 12:00 | ER Document Report ---
ED General - General Chief Complaint: Diarrhea Stated Complaint: DIZZY,DIARRHEA,NOT EATING Time Seen by Provider: 02/25/20 11:47 Primary Care Provider: GRACIELA POP MD [Primary Care Provider] - Follow up as needed Mode of Arrival: Ambulatory Information source: Patient Notes: 74-year-old male patient presents the emergency department with complaints of dizziness with walking and intermittent fevers. Patient was tested for COVID-19 5 days ago and was positive. He states he had a follow-up appointment with his primary care provider today who wanted him to come to the emergency room for a work-up to evaluate for pneumonia. Patient reports he actually feels fine and is not having any difficulty breathing. He has not had any nausea, vomiting or diarrhea. He does not know where he contracted COVID-19. TRAVEL OUTSIDE OF THE [place] IN LAST 30 DAYS: No - Related Data Allergies/Adverse Reactions: bupivacaine HCl [From Marcaine] Adverse Reaction (Intermediate, Verified 11/02/19 08:07) Hypotension rofecoxib [From Vioxx] Adverse Reaction (Intermediate, Verified 11/02/19 08:07) Hepatic dysfunction Past Medical History - General Information source: Patient - Social History Smoking Status: Never Smoker Family History: Reviewed & Not Pertinent - Past Medical History Cardiac Medical History: Reports: Hx Coronary Artery Disease, Hx Heart Attack - 1992, Hx Hypercholesterolemia, Hx Hypertension Pulmonary Medical History: Reports: Hx COPD, Hx Pneumonia - 2000 Denies: Hx Asthma, Hx Bronchitis, Hx Tuberculosis Neurological Medical History: Denies: Hx Cerebrovascular Accident, Hx Seizures Renal/ Medical History: Denies: Hx Peritoneal Dialysis GI Medical History: Reports: Hx Gastroesophageal Reflux Disease Musculoskeletal Medical History: Denies Hx Arthritis Psychiatric Medical History: Denies: Hx Depression Past Surgical History: Reports: Hx Abdominal Surgery, Hx Cardiac Surgery - Stents 2013, Hx Orthopedic Surgery - right hip replacement. Denies: Hx Pacemaker - Immunizations Hx Diphtheria, Pertussis, Tetanus Vaccination: No Hx Pneumococcal Vaccination: 06/05/14 Review of Systems - Review of Systems Constitutional: Fever EENT: No symptoms reported Cardiovascular: Dizziness Respiratory: Cough, Short of breath - Mild Gastrointestinal: No symptoms reported Genitourinary: No symptoms reported Male Genitourinary: No symptoms reported Musculoskeletal: No symptoms reported Skin: No symptoms reported Hematologic/Lymphatic: No symptoms reported Neurological/Psychological: No symptoms reported Physical Exam - Vital signs Vitals: Temp 99 F 02/25/20 11:59 - Notes Notes: PHYSICAL EXAMINATION: GENERAL: Well-appearing, well-nourished and in no acute distress. HEAD: Atraumatic, normocephalic. EYES: Pupils equal round and reactive to light, extraocular movements intact, sclera anicteric, conjunctiva are normal. ENT: Nares patent, oropharynx clear without exudates. Moist mucous membranes. NECK: Normal range of motion, supple without lymphadenopathy LUNGS: Breath sounds clear to auscultation bilaterally and equal. No wheezes rales or rhonchi. HEART: Regular rate and rhythm without murmurs ABDOMEN: Soft, nontender, nondistended abdomen. No guarding, no rebound. No masses appreciated. Musculoskeletal: Normal range of motion, no pitting or edema. No cyanosis. NEUROLOGICAL: Cranial nerves grossly intact. Normal speech, normal gait. Normal sensory, motor exams PSYCH: Normal mood, normal affect. SKIN: Warm, Dry, normal turgor, no rashes or lesions noted. Course - Re-evaluation Re-evalutation: Microbiology 02/25/20 13:09 Blood Culture - Preliminary Blood NO GROWTH IN 24 HOURS 02/25/20 12:30 Blood Culture - Preliminary Blood NO GROWTH IN 24 HOURS Laboratory 02/25/20 02/25/20 02/25/20 12:30 12:30 12:30 WBC 4.6 RBC 4.58 Hgb 14.7 Hct 42.2 MCV 92 MCH 32.0 MCHC 34.7 RDW 14.4 H Plt Count 107 L Lymph % (Auto) 13.0 [place] % (Auto) 9.8 Eos % (Auto) 0.0 Baso % (Auto) 0.2 Absolute Neuts (auto) 3.5 Absolute Lymphs (auto) 0.6 Absolute Monos (auto) 0.4 Absolute Eos (auto) 0.0 Absolute Basos (auto) 0.0 Seg Neutrophils % 77.0 D-Dimer 0.84 H Sodium 134.0 L Potassium 3.9 Chloride 105 Carbon Dioxide 22 Anion Gap 7 BUN 23 H Creatinine 1.57 H Est GFR ( Amer) 53 L Est GFR (MDRD) Non-Af 43 L Glucose 139 H Calcium 8.1 L Ferritin 719.00 H Total Bilirubin 0.8 Direct Bilirubin 0.3 Neonat Total Bilirubin Not Reportable Neonat Direct Bilirubin Not Reportable Neonat Indirect Bili Not Reportable AST 54 ALT 40 Alkaline Phosphatase 97 C-Reactive Protein 54.8 H Total Protein 6.3 Albumin 3.2 L Urine Color Urine Appearance Urine pH Ur Specific [place] Urine Protein Urine Glucose (UA) Urine Ketones Urine Blood Urine Nitrite Urine Bilirubin Urine Urobilinogen Ur Leukocyte Esterase Urine WBC (Auto) Urine RBC (Auto) Squamous Epi Cells Auto Calcium Oxalate Cr Auto Urine Mucus (Auto) Urine Ascorbic Acid 02/25/20 13:11 WBC RBC Hgb Hct MCV MCH MCHC RDW Plt Count Lymph % (Auto) [place] % (Auto) Eos % (Auto) Baso % (Auto) Absolute Neuts (auto) Absolute Lymphs (auto) Absolute Monos (auto) Absolute Eos (auto) Absolute Basos (auto) Seg Neutrophils % D-Dimer Sodium Potassium Chloride Carbon Dioxide Anion Gap BUN Creatinine Est GFR ( Amer) Est GFR (MDRD) Non-Af Glucose Calcium Ferritin Total Bilirubin Direct Bilirubin Neonat Total Bilirubin Neonat Direct Bilirubin Neonat Indirect Bili AST ALT Alkaline Phosphatase C-Reactive Protein Total Protein Albumin Urine Color ZINA Urine Appearance SLIGHTLY-CLOUDY Urine pH 5.0 Ur Specific [place] 1.044 Urine Protein 100 H Urine Glucose (UA) NEGATIVE Urine Ketones 80 H Urine Blood NEGATIVE Urine Nitrite NEGATIVE Urine Bilirubin MODERATE H Urine Urobilinogen 2.0 H Ur Leukocyte Esterase NEGATIVE Urine WBC (Auto) 2 Urine RBC (Auto) 2 Squamous Epi Cells Auto 1 Calcium Oxalate Cr Auto MANY Urine Mucus (Auto) MANY Urine Ascorbic Acid 20 H Chest X-Ray 02/25/20 11:59 IMPRESSION: Subtle ill-defined ground-glass opacities along the bilateral peripheral mid lungs, possibly infectious/ inflammatory. No focal consolidation. No pleural effusion. Patient appears well, nontoxic. He is not tachypneic or hypoxic. He states he feels well. He does have subtle groundglass opacities bilaterally. He is positive for COVID-19. Considering he appears well and is not hypoxic he will be discharged home with strict ED return precautions. Patient verbalized understanding and agreement with same. - Vital Signs Vital signs: Temp Pulse Resp BP Pulse Ox 97.7 F 58 L 16 96/61 L 97 02/25/20 16:05 02/25/20 16:05 02/25/20 16:05 02/25/20 16:05 02/25/20 16:05 - Laboratory Result Diagrams: 02/25/20 12:30 02/25/20 12:30 Laboratory results interpreted by me: 02/25/20 02/25/20 02/25/20 12:30 12:30 12:30 RDW 14.4 H Plt Count 107 L D-Dimer 0.84 H Sodium 134.0 L BUN 23 H Creatinine 1.57 H Est GFR ( Amer) 53 L Est GFR (MDRD) Non-Af 43 L Glucose 139 H Calcium 8.1 L Ferritin 719.00 H C-Reactive Protein 54.8 H Albumin 3.2 L Urine Protein Urine Ketones Urine Bilirubin Urine Urobilinogen Urine Ascorbic Acid 02/25/20 13:11 RDW Plt Count D-Dimer Sodium BUN Creatinine Est GFR ( Amer) Est GFR (MDRD) Non-Af Glucose Calcium Ferritin C-Reactive Protein Albumin Urine Protein 100 H Urine Ketones 80 H Urine Bilirubin MODERATE H Urine Urobilinogen 2.0 H Urine Ascorbic Acid 20 H Discharge - Discharge Clinical Impression: COVID-19, Cough Condition: Stable Disposition: HOME, SELF-CARE Instructions: COVID-19 Guidance for Persons Under Investigation Additional Instructions: Your x-ray shows evidence of pneumonia. Please take the medications as prescribed. Please keep close follow-up with your primary care doctor. Please return to the emergency department if you develop shortness of breath. Prescriptions: Benzonatate [Tessalon Perles 100 mg Capsule] 1 - 2 tab PO Q8HP PRN #30 capsule PRN Reason: Azithromycin [Zithromax 250 mg Tablet] 250 mg PO ASDIR PRN #6 tablet PRN Reason: Forms: Return to Work Referrals: GRACIELA POP MD [Primary Care Provider] - Follow up as needed
[2020-02-25 12:47] LABS: ABSOLUTE LYMPHOCYTES (AUTO) 0.6 10^3/uL (0.5-4.7); ABSOLUTE MONOCYTES (AUTO) 0.4 10^3/uL (0.1-1.4); ABSOLUTE NEUT (AUTO) 3.5 10^3/uL (1.7-8.2); BASOPHILS % (AUTO) 0.2 % (0-2); HEMATOCRIT 42.2 % (37.9-51.0); HEMOGLOBIN 14.7 g/dL (13.5-17.0); MEAN CORPUSCULAR HGB CONC 34.7 g/dL (32.0-36.0); MEAN CORPUSCULAR VOLUME 92 fl (80-97); MONOCYTES % (AUTO) 9.8 % (3-13); PLATELET COUNT 107 10^3/uL (150-450); RED BLOOD COUNT 4.58 10^6/uL (4.35-5.55); RED CELL DISTRIBUTION WIDTH 14.4 % (11.5-14.0); TOTAL CELLS COUNTED % (AUTO) 100 %; WHITE BLOOD COUNT 4.6 10^3/uL (4.0-10.5)
--- NOTE | 2020-02-25 12:53 | RADIOLOGY REPORT (SQ) ---
EXAM DESCRIPTION: CHEST SINGLE VIEW IMAGES COMPLETED DATE/TIME: 02/25/2020 12:40 pm REASON FOR STUDY: covid+, worsening symptoms COMPARISON: 02/22/2020 EXAM PARAMETERS: NUMBER OF VIEWS: One view. TECHNIQUE: Single frontal radiographic view of the chest acquired. RADIATION DOSE: NA LIMITATIONS: None. FINDINGS: LUNGS AND PLEURA: Subtle ill-defined opacities along the bilateral peripheral mid lungs. No dense consolidation. No pleural effusion or pneumothorax. MEDIASTINUM AND HILAR STRUCTURES: No masses. Contour normal. HEART AND VASCULAR STRUCTURES: Heart normal in size. Normal vasculature. BONES: No acute findings. HARDWARE: None in the chest. OTHER: No other significant finding. IMPRESSION: Subtle ill-defined ground-glass opacities along the bilateral peripheral mid lungs, poss ibly infectious/ inflammatory. No focal consolidation. No pleural effusion. TECHNICAL DOCUMENTATION: JOB ID: [id number] 2010 [employer]- All Rights Reserved Reading location - IP/workstation name: [email or web address]
[2020-02-25 13:06] LABS: ALBUMIN 3.2 g/dL (3.5-5.0); ALKALINE PHOSPHATASE 97 U/L (38-126); ANION GAP 7 (5-19); ASPARTATE AMINO TRANSFERASE 54 U/L (17-59); BILIRUBIN,DIRECT 0.3 mg/dL (0.0-0.4); BILIRUBIN,TOTAL 0.8 mg/dL (0.2-1.3); BLOOD UREA NITROGEN 23 mg/dL (7-20); C-REACTIVE PROTEIN 54.8 mg/L (<10.0); CALCIUM 8.1 mg/dL (8.4-10.2); CARBON DIOXIDE 22 mmol/L (22-30); CHLORIDE 105 mmol/L (98-107); GLUCOSE 139 mg/dL (75-110); POTASSIUM 3.9 mmol/L (3.6-5.0); TOTAL PROTEIN 6.3 g/dL (6.3-8.2)
[2020-02-25 13:26] LABS: APPEARANCE,URINE SLIGHTLY-CLOUDY; BILIRUBIN,URINE MODERATE (NEGATIVE); CALCIUM OXALATE CRYSTALS,URINE MANY /HPF; COLOR,URINE AMBER; GLUCOSE, URINE NEGATIVE (NEGATIVE); KETONES,URINE 80 mg/dL (NEGATIVE); LEUKOCYTE ESTERASE,URINE NEGATIVE (NEGATIVE); NITRITE,URINE NEGATIVE (NEGATIVE); PROTEIN,URINE 100 mg/dL (NEGATIVE); URINE SPECIFIC GRAVITY 1.044
[2020-02-25 16:07] VITALS: BP 96/61
== END 2020-02-25 16:07 | disposition home or self-care (01) ==
LOC: ER 11:40
DX: U07.1 COVID-19 (principal); R05 Cough; R19.7 Diarrhea, unspecified; R42 Dizziness and giddiness; R50.9 Fever, unspecified
CPT/HCPCS: 36415; 71045; 80053; 81001; 82728; 85025; 85379; 86140; 87040; 99284

== ENCOUNTER 2020-02-26 15:51 | Emergency (ER) | payer OTHER, MEDICARE, BC ==
--- NOTE | 2020-02-26 17:02 | ER Document Report ---
ED General - General Chief Complaint: Shortness Of Breath Stated Complaint: SHORTNESS OF BREATH Time Seen by Provider: 02/26/20 17:02 Primary Care Provider: GRACIELA VITALE MD [Primary Care Provider] - Follow up as needed TRAVEL OUTSIDE OF THE [place] IN LAST 30 DAYS: No - HPI Notes: 74-year-old male presents to the emergency department stating that he "needs to get oxygen and liquid", his primary care doctor told him this over the phone. Patient is known to have COVID, he was diagnosed last week. Patient has been seen in the emergency department twice recently. He states compared to his previous 2 visits he is actually feeling a lot better. He denies shortness of breath. States he has an occasional cough. States overall he feels good right now. He is still having diarrhea, no vomiting or abdominal pain. Reports he is eating and drinking as much as he can. Denies chest pain. He states that he is taking albuterol at home when he needs it, which is about 4-6 times per day. He is also taking trilogy once a day. - Related Data Allergies/Adverse Reactions: bupivacaine HCl [From Marcaine] Adverse Reaction (Intermediate, Verified 02/26/20 17:20) Hypotension rofecoxib [From Vioxx] Adverse Reaction (Intermediate, Verified 02/26/20 17:20) Hepatic dysfunction Past Medical History - General Information source: Patient - Social History Smoking Status: Former Smoker Family History: Reviewed & Not Pertinent - Past Medical History Cardiac Medical History: Reports: Hx Coronary Artery Disease, Hx Heart Attack - 1992, Hx Hypercholesterolemia, Hx Hypertension Pulmonary Medical History: Reports: Hx COPD, Hx Pneumonia - 2000 Denies: Hx Asthma, Hx Bronchitis, Hx Tuberculosis Neurological Medical History: Denies: Hx Cerebrovascular Accident, Hx Seizures Renal/ Medical History: Denies: Hx Peritoneal Dialysis GI Medical History: Reports: Hx Gastroesophageal Reflux Disease Musculoskeletal Medical History: Denies Hx Arthritis Psychiatric Medical History: Denies: Hx Depression Past Surgical History: Reports: Hx Abdominal Surgery, Hx Cardiac Surgery - Stents 2013, Hx Orthopedic Surgery - right hip replacement. Denies: Hx Pacemaker - Immunizations Hx Diphtheria, Pertussis, Tetanus Vaccination: No Hx Pneumococcal Vaccination: 06/05/14 Review of Systems - Review of Systems Constitutional: denies: Fever EENT: No symptoms reported Cardiovascular: denies: Chest pain Respiratory: Cough. denies: Short of breath Gastrointestinal: Diarrhea. denies: Abdominal pain, Nausea, Vomiting Genitourinary: No symptoms reported Male Genitourinary: No symptoms reported Musculoskeletal: denies: Muscle pain Skin: No symptoms reported Hematologic/Lymphatic: No symptoms reported Neurological/Psychological: No symptoms reported Physical Exam - Vital signs Vitals: Resp Pulse Ox 16 92 02/26/20 16:07 02/26/20 16:07 - General General appearance: Appears well, Alert In distress: None - HEENT Head: Normocephalic, Atraumatic Extraocular movements intact: Yes Pupils: PERRL Mucous membranes: Moist Neck: Normal - Respiratory Respiratory status: No respiratory distress. No: Tachypnea Breath sounds: Decreased air movement - At bases, Nonproductive cough - Cardiovascular Rhythm: Regular Heart sounds: Normal auscultation Normal capillary refill: Yes - Abdominal Distension: No distension Tenderness: Nontender - Extremities General upper extremity: Normal ROM General lower extremity: Normal ROM. No: Edema - Neurological Neuro grossly intact: Yes Cognition: Normal Orientation: AAOx4 - Psychological Associated symptoms: Normal affect - Skin Skin Temperature: Warm Course - Re-evaluation Re-evalutation: 02/26/20 17:26 34-year-old male COVID positive about a week into his illness here reportedly per the request of Dr. Vitale to receive fluids and oxygen therapy. He reports improvement of his symptoms. He was seen in the emergency department 02/21 and 02/24, he was started on a Z-Mitul yesterday. He is afebrile, 94% on room air. He does have some decreased sound at the bases, no respiratory distress overall. Reviewed past work-up and laboratory evaluation. Although COVID is known to cause an elevated d-dimer, will CTA his chest today to rule out pulmonary embolism. Will give DuoNeb and Decadron for symptoms as concern COVID might be causing exacerbation of his COPD. Will give small fluid bolus. 02/26/20 18:14 Labs reviewed. No leukocytosis, no lymphopenia. No acute anemia. Electrolytes are okay. Creatinine slight elevation but appears to be near his baseline, some improvement since yesterday's value. CRP elevated but has decreased from previous value. 02/26/20 19:09 CTA chest reviewed along with report. Per radiology, there is no acute infiltrate or effusion. No pulmonary embolism. 02/26/20 19:21 I went in to update patient on his results. He continues to be well-appearing. No episodes of hypoxia while in the ED. I discussed with him that he could be admitted overnight for observation. He declined this. We discussed strict return precautions, patient verbalized understanding. He is of sound mind to make decisions. He was stable at time of discharge. - Vital Signs Vital signs: Temp Pulse Resp BP Pulse Ox 98.5 F 66 20 119/71 93 02/26/20 17:22 02/26/20 16:14 02/26/20 19:00 02/26/20 18:28 02/26/20 19:00 - Laboratory Result Diagrams: 02/26/20 17:03 02/26/20 17:03 Laboratory results interpreted by me: 02/26/20 02/26/20 17:03 17:03 RDW 14.2 H Plt Count 128 L Sodium 134.6 L BUN 29 H Creatinine 1.49 H Est GFR ( Amer) 56 L Est GFR (MDRD) Non-Af 46 L Calcium 8.0 L AST 66 H C-Reactive Protein 41.8 H Albumin 3.3 L - Diagnostic Test Radiology reviewed: Image reviewed, Reports reviewed - EKG Interpretation by Me Additional EKG results interpreted by me: 02/26/20 18:21 EKG is interpreted by me. Poor baseline. There are discernible P waves, sinus rhythm at 75. Narrow QRS, QTC within normal limits. Nonspecific ST changes Discharge - Discharge Clinical Impression: COVID-19 virus infection Condition: Stable Disposition: HOME, SELF-CARE Additional Instructions: Please continue to use your albuterol inhaler. Please have close follow-up with your primary care doctor. Return to the emergency department for any concerning or worsening symptoms. Referrals: GRACIELA VITALE MD [Primary Care Provider] - Follow up as needed
[2020-02-26] MEDS ORDERED: DEXAMETHASONE SOD PHOS INJ 10 MG/1 ML VIAL IV ONE (17:21)
[2020-02-26] MEDS ORDERED: IPRATROPIUM/ALBUTEROL 0.5-2.5 MG/3 ML AMPUL NEB ONE (17:21)
[2020-02-26] MEDS ORDERED: NORMAL SALINE 500 ML IV ONE (17:21)
[2020-02-26 17:43] LABS: ABSOLUTE LYMPHOCYTES (AUTO) 0.7 10^3/uL (0.5-4.7); ABSOLUTE MONOCYTES (AUTO) 0.5 10^3/uL (0.1-1.4); ABSOLUTE NEUT (AUTO) 4.1 10^3/uL (1.7-8.2); BASOPHILS % (AUTO) 0.2 % (0-2); EOSINOPHILS % (AUTO) 0.1 % (0-6); HEMATOCRIT 44.2 % (37.9-51.0); HEMOGLOBIN 15.4 g/dL (13.5-17.0); LYMPHOCYTES % (AUTO) 13.5 % (13-45); MEAN CORPUSCULAR HEMOGLOBIN 32.2 pg (27.0-33.4); MEAN CORPUSCULAR HGB CONC 34.8 g/dL (32.0-36.0); MEAN CORPUSCULAR VOLUME 93 fl (80-97); MONOCYTES % (AUTO) 8.7 % (3-13); PLATELET COUNT 128 10^3/uL (150-450); RED BLOOD COUNT 4.78 10^6/uL (4.35-5.55); RED CELL DISTRIBUTION WIDTH 14.2 % (11.5-14.0); SEGMENTED NEUTROPHILS % (AUTO) 77.5 % (42-78); TOTAL CELLS COUNTED % (AUTO) 100 %; WHITE BLOOD COUNT 5.3 10^3/uL (4.0-10.5)
[2020-02-26 17:46] LABS: ALBUMIN 3.3 g/dL (3.5-5.0); ALKALINE PHOSPHATASE 107 U/L (38-126); ANION GAP 9 (5-19); ASPARTATE AMINO TRANSFERASE 66 U/L (17-59); BILIRUBIN,DIRECT 0.4 mg/dL (0.0-0.4); BLOOD UREA NITROGEN 29 mg/dL (7-20); C-REACTIVE PROTEIN 41.8 mg/L (<10.0); CARBON DIOXIDE 23 mmol/L (22-30); CHLORIDE 103 mmol/L (98-107); GLUCOSE 104 mg/dL (75-110); POTASSIUM 3.9 mmol/L (3.6-5.0); TOTAL PROTEIN 6.5 g/dL (6.3-8.2)
--- NOTE | 2020-02-26 18:20 | RADIOLOGY REPORT (SQ) ---
EXAM DESCRIPTION: CTA CHEST IMAGES COMPLETED DATE/TIME: 02/26/2020 5:56 pm REASON FOR STUDY: +COVID, SOB, eval PE COMPARISON: None. TECHNIQUE: CT scan of the chest performed using helical scanning technique with dynamic intravenous contrast injection. Images reviewed with lung, soft tissue and bone windows. Reconstructed coronal and sagittal MPR images reviewed. Additional 3 dimensional post-processing performed to develop Maximal Intensity Projection images (PA P). All images stored on PACS. All CT scanners at this facility use dose modulation, iterative reconstruction, and/or weight based d osing when appropriate to reduce radiation dose to as low as reasonably achievable (ALARA). [facility]: Dose Right [facility]: CareDose [facility]: Dose Right [facility]: Teradose 4D [facility]: Fengguo CONTRAST TYPE AND DOSE: contrast/concentration: Omnipaque 300 mmol/ml; Total Contrast Delivered: 71 .0 ml; Total Saline Delivered: 65.0 ml Contrast bolus adequate for pulmonary arteries and aorta. RENAL FUNCTION: BUN 23 creatinine 1.57 RADIATION DOSE: CT Rad equipment meets quality standard of care and radiation dose reduction techniq ues were employed. CTDIvol: 6.6 - 19.8 mGy. DLP: 788 mGy-cm. . LIMITATIONS: None. FINDINGS: LUNGS AND PLEURA: Mild emphysematous changes in the upper lobes predominantly. Mild perip heral pulmonary fibrosis. No acute infiltrate or effusion. AORTA AND GREAT VESSELS: No aneurysm. No dissection. HEART: No pericardial effusion. Moderate to marked coronary artery calcifications. PULMONARY ARTERIES: No emboli visualized in the main pulmonary arteries or the segmental branches. HILAR AND MEDIASTINAL STRUCTURES: No identified masses or abnormal nodes. HARDWARE: None in the chest. UPPER ABDOMEN: No significant findings. Limited exam. THYROID AND OTHER SOFT TISSUES: No masses. No adenopathy. BONES: No acute or significant finding. 3D MIPS: Confirm above findings. OTHER: No other significant finding. IMPRESSION: There are no pulmonary emboli. There is no aortic aneurysm or dissection. Mild pulmona ry emphysema. Mild pulmonary fibrosis. COMMENT: Quality ID # [id number]: Final reports with documentation of one or more dose reduction techniques (e.g., Automated exposure control, adjustment of the mA and/or kV according to patient size, use of iterative reconstruction technique) TECHNICAL DOCUMENTATION: JOB ID: [id number] [employer]- All Rights Reserved Reading location - IP/workstation name: [email or web address]
--- NOTE | 2020-02-26 18:28 | EKG REPORT ---
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
[2020-02-26 20:06] VITALS: BP 127/69
== END 2020-02-26 20:06 | disposition home or self-care (01) ==
LOC: ER 15:51
DX: U07.1 COVID-19 (principal); R19.7 Diarrhea, unspecified; J43.9 Emphysema, unspecified; J84.10 Pulmonary fibrosis, unspecified; R05 Cough; I25.10 Atherosclerotic heart disease of native coronary artery without angina pectoris; I10 Essential (primary) hypertension; I25.2 Old myocardial infarction; Z79.899 Other long term (current) drug therapy; Z87.01 Personal history of pneumonia (recurrent); Z95.5 Presence of coronary angioplasty implant and graft; Z87.891 Personal history of nicotine dependence
CPT/HCPCS: 93005; 94640; 99285; 96361; 96374; 36415; 85025; 86140; 80053; 71275; 93010; J7040; J1100

== ENCOUNTER → 2020-03-14 | Outpatient (CLI) | payer MEDICARE, BC ==
--- NOTE | 2020-03-14 16:04 | RADIOLOGY REPORT (SQ) ---
EXAM DESCRIPTION: CHEST PA/LATERAL IMAGES COMPLETED DATE/TIME: 03/14/2020 3:20 pm REASON FOR STUDY: COUGH COMPARISON: 02/25/2020 EXAM PARAMETERS: NUMBER OF VIEWS: two views TECHNIQUE: Digital Frontal and Lateral radiographic views of the chest acquired. RADIATION DOSE: NA LIMITATIONS: none FINDINGS: LUNGS AND PLEURA: There appears to be some focal atelectasis in the left lower lung field that was not present on the earlier study. No acute infiltrate or effusion. MEDIASTINUM AND HILAR STRUCTURES: No masses or contour abnormalities. HEART AND VASCULAR STRUCTURES: Heart normal size. No evidence for failure. BONES: No acute findings. HARDWARE: None in the chest. OTHER: No other significant finding. IMPRESSION: Focal atelectasis with no acute finding. TECHNICAL DOCUMENTATION: JOB ID: [id number] 2010 [employer]- All Rights Reserved Reading location - IP/workstation name: [email or web address]
== END ==
LOC: OD 15:02
PROVIDERS: ATTEND Family Medicine Geriatric Medicine
DX: R05 Cough (principal)
CPT/HCPCS: 71046

== ENCOUNTER → 2020-03-25 | Outpatient (CLI) | payer MEDICARE, BC ==
[2020-03-25 10:13] LABS: ALBUMIN 3.7 g/dL (3.5-5.0); ALKALINE PHOSPHATASE 92 U/L (38-126); ANION GAP 8 (5-19); ASPARTATE AMINO TRANSFERASE 34 U/L (17-59); BILIRUBIN,DIRECT 0.3 mg/dL (0.0-0.4); BLOOD UREA NITROGEN 22 mg/dL (7-20); CALCIUM 8.9 mg/dL (8.4-10.2); CARBON DIOXIDE 25 mmol/L (22-30); CHLORIDE 106 mmol/L (98-107); CHOLESTEROL 135.24 mg/dL (0-200); GLUCOSE 106 mg/dL (75-110); POTASSIUM 4.5 mmol/L (3.6-5.0); TOTAL PROTEIN 6.5 g/dL (6.3-8.2); TRIGLYCERIDES 208 mg/dL (<150)
[2020-03-25 10:23] LABS: DIRECT LDL 63 mg/dL (<100)
[2020-03-25 10:29] LABS: VLDL CHOLESTEROL 41.6 mg/dL (10-31)
== END ==
LOC: OD 08:35
PROVIDERS: ATTEND Internal Medicine Cardiovascular Disease
DX: R94.5 Abnormal results of liver function studies (principal); E78.2 Mixed hyperlipidemia; I10 Essential (primary) hypertension; Z79.899 Other long term (current) drug therapy
CPT/HCPCS: 36415; 80048; 80061; 80076; 83735

== ENCOUNTER → 2020-04-22 | Outpatient (CLI) | payer MEDICARE, OTHER ==
--- NOTE | 2020-04-22 13:40 | XCELERA REPORT ---
[address] [address] Transthoracic Echocardiogram Report Name: BENY DRIVER Age: 74 yrs Gender: Male : 1945 Patient Status: Preadmit Patient Location: [facility] Study Date: 04/22/2020 08:16 AM Height: 67 in Weight: 185 lb BSA: 2.0 m2 Reason For Study: SOB Ordering Physician: DIONE SILVERIO Performed By: Celso Daily Interpretation Summary Minimal posterior pericardial effusion.. Normal aortic root, but calcified. AV valve configuration 3 cusps, normal, with no and no AR.. Mild mitral annular calcification. No MS, No MVP.. Mild MR with no left atrial enlargement No LVH, normal LVEF (visual 60-65%), LVDD-I. Segmental regional wall motion abnormality seen as inferoseptal and inferior wall hypokinesis. No LV enlargement . Tricuspid valve is normal, trace TV regurgitation., trace AR. RA and RV normal size. RVSP is 30 mm Hg. No ASD Summary = Mild calcified aortic root. Normal AV. Mild MR with no MS, no LA enlargement. No LVH , normal LVEF (60-65%) and size, with LV Diastolic Dysfunction by doppler. Mod regional wall motion abnormality as in inferoseptal and inferior wall hypokinesis. Normal R heart, NO pulm. HTN, RVSP22. Mild MR and TR trace and upper normal RVSP, no pulm. hypertension . Dr Dione Silverio. MMode/2D Measurements & Calculations RVDd: 3.2 cm LVIDd: 4.4 cm FS: 35.7 % Ao root diam: 3.2 cm IVSd: 0.86 cm LVIDs: 2.8 cm EDV(Teich): Ao root area: LVPWd: 0.91 cm 88.8 ml ESV(Teich): 7.8 cm2 30.8 ml LA dimension: 4.6 cm EF(Teich): 65.3 % LVLd ap4: 8.8 cm SV(MOD-sp4): EDV(MOD-sp4): 44.0 ml 69.0 ml LVLs ap4: 7.2 cm ESV(MOD-sp4): 25.0 ml EF(MOD-sp4): 63.8 % Doppler Measurements & Calculations MV E max jena: MV P1/2t max jena: Ao V2 max: LV V1 max P.8 cm/sec 67.9 cm/sec 147.7 cm/sec 4.5 mmHg MV A max jena: MV P1/2t: 86.3 msec Ao max P.7 mmHg LV V1 max: 71.3 cm/sec 105.7 cm/sec MV E/A: 0.94 MVA(P1/2t): 2.5 cm2 MV dec slope: 230.4 cm/sec2 MV dec time: 0.23 sec PA V2 max: TR max jena: MV P1/2t-pr_phl: 92.8 cm/sec 259.8 cm/sec 86.3 msec PA max PG: TR max P.0 mmHg 3.4 mmHg I WMSI = 1.25 % Normal = 75 Segments Size X - Cannot 1 - Normal 2 - 3 - Akinetic4 - 1-2 small Interpret Hypokinetic Dyskinetic 3-5 moderate 5 - 6-14 large Aneurysmal 15-16 diffuse : DIONE SILVERIO Andre
== END ==
LOC: SP 07:49
PROVIDERS: ATTEND Internal Medicine Cardiovascular Disease
DX: R06.02 Shortness of breath (principal)
CPT/HCPCS: 93306

== ENCOUNTER → 2020-07-14 | Outpatient (CLI) | payer MEDICARE, OTHER ==
[2020-07-14 09:48] LABS: ABSOLUTE EOSINOPHILS # (AUTO) 0.3 10^3/uL (0.0-0.6); ABSOLUTE LYMPHOCYTES (AUTO) 1.4 10^3/uL (0.5-4.7); ABSOLUTE MONOCYTES (AUTO) 0.5 10^3/uL (0.1-1.4); BASOPHILS % (AUTO) 0.5 % (0-2); EOSINOPHILS % (AUTO) 4.4 % (0-6); HEMATOCRIT 47.2 % (37.9-51.0); HEMOGLOBIN 16.5 g/dL (13.5-17.0); LYMPHOCYTES % (AUTO) 22.4 % (13-45); MEAN CORPUSCULAR HEMOGLOBIN 32.1 pg (27.0-33.4); MEAN CORPUSCULAR HGB CONC 34.9 g/dL (32.0-36.0); MEAN CORPUSCULAR VOLUME 92 fl (80-97); MONOCYTES % (AUTO) 8.7 % (3-13); PLATELET COUNT 138 10^3/uL (150-450); RED BLOOD COUNT 5.13 10^6/uL (4.35-5.55); RED CELL DISTRIBUTION WIDTH 13.1 % (11.5-14.0); TOTAL CELLS COUNTED % (AUTO) 100 %; WHITE BLOOD COUNT 6.2 10^3/uL (4.0-10.5)
[2020-07-14 10:05] LABS: ALBUMIN 3.9 g/dL (3.5-5.0); ALKALINE PHOSPHATASE 86 U/L (38-126); ANION GAP 6 (5-19); ASPARTATE AMINO TRANSFERASE 33 U/L (17-59); BILIRUBIN,DIRECT 0.1 mg/dL (0.0-0.4); BILIRUBIN,TOTAL 0.7 mg/dL (0.2-1.3); BLOOD UREA NITROGEN 19 mg/dL (7-20); CARBON DIOXIDE 27 mmol/L (22-30); CHLORIDE 106 mmol/L (98-107); CHOLESTEROL 135.41 mg/dL (0-200); GLUCOSE 109 mg/dL (75-110); POTASSIUM 4.3 mmol/L (3.6-5.0); TOTAL PROTEIN 6.9 g/dL (6.3-8.2); TRIGLYCERIDES 170 mg/dL (<150)
[2020-07-14 10:16] LABS: DIRECT LDL 71 mg/dL (<100)
== END ==
LOC: LAB 09:07
PROVIDERS: ATTEND Family Medicine Geriatric Medicine
DX: I10 Essential (primary) hypertension (principal); E78.5 Hyperlipidemia, unspecified; J44.9 Chronic obstructive pulmonary disease, unspecified; I25.10 Atherosclerotic heart disease of native coronary artery without angina pectoris; Z79.899 Other long term (current) drug therapy
CPT/HCPCS: 36415; 80053; 80061; 85025

== ENCOUNTER → 2020-07-24 | Outpatient (CLI) | payer MEDICARE, OTHER ==
--- NOTE | 2020-07-24 10:42 | RADIOLOGY REPORT (SQ) ---
EXAM DESCRIPTION: CTA ABDOMEN IMAGES COMPLETED DATE/TIME: 07/24/2020 8:17 am REASON FOR STUDY: I71.4 ABDOMINAL AORTIC ANEURYSM, WITHOUT RUPTURE I71.4 ABDOMINAL AORTIC ANEURYSM, WITHOUT RUPTURE COMPARISON: 11/02/2019 in 01/19/2019 TECHNIQUE: CT scan of the abdominal aorta extending to the iliac bifurcation performed with intraven ous contrast using helical scanning technique with dynamic intravenous contrast injection. Images rev iewed with lung, soft tissue, and bone windows. Reconstructed coronal and sagittal MPR images reviewe d. All images stored on PACS. Advanced 3D imaging as volume rendering, MIPS, SSD performed? yes All CT scanners at this facility use dose modulation, iterative reconstruction, and/or weight based d osing when appropriate to reduce radiation dose to as low as reasonably achievable (ALARA). [facility]: Dose Right [facility]: CareDose [facility]: Dose Right [facility]: Teradose 4D [facility]: Bidstalk CONTRAST TYPE AND DOSE: contrast/concentration: Isovue 350.00 mmol/ml; Total Contrast Delivered: 65. 0 ml; Total Saline Delivered: 80.0 ml RENAL FUNCTION: BUN 19; creatinine 1.37 LIMITATIONS: None. FINDINGS: NON-CONTRASTED IMAGING: Post contrast images only. POST-CONTRAST IMAGING: AORTA AND VESSELS: Ectasia of the infrarenal abdominal aorta, measuring on the order of 2.9 x 2.9 cm (previously 2.9 x 2.8 cm). Calcified and noncalcified atherosclerotic plaque without flow limiting s tenosis. No dissection. No irregular plaque. LUNG BASES: No significant findings. No nodules or infiltrates. LIVER: Normal size. No masses or dilated ducts. SPLEEN: Normal size. No focal lesions. PANCREAS: No masses. No significant calcifications. No adjacent inflammation or peripancreatic fluid collections. Pancreatic duct not dilated. GALLBLADDER: Gallstones. No inflammatory changes to suggest cholecystitis. ADRENAL GLANDS: No significant masses or asymmetry. RIGHT KIDNEY AND URETER: No mass, calculi or urinary tract obstruction. LEFT KIDNEY AND URETER: No mass, calculi or urinary tract obstruction. RETROPERITONEUM: No retroperitoneal adenopathy, hemorrhage or masses. BOWEL AND PERITONEAL CAVITY: Status post right hemicolectomy without evidence of anastomotic leak. T he bowel is otherwise unremarkable as visualized. APPENDIX: Surgically absent. ABDOMINAL WALL: No masses. No hernias. BONY STRUCTURES: No significant or acute findings. 3-D IMAGING: Confirms the above findings. OTHER: No other significant finding. IMPRESSION: Stable appearance of the abdominal aorta demonstrating calcified and noncalcified plaque with infrarenal ectasia measuring on the order of 2.9 x 2.9 cm. Proximal normal segment of the aort a measures 2.3 cm; as such, the above findings do not meet imaging criteria for designation as aortic aneurysm. COMMENT: AAA Size: Follow-up Recommendation No aneurysm. No follow-up recommended. *Based upon the ACR White Paper in the J Am Daniel Radiol 2013;10 (10):789-794. *For aortas of maximum diameter of 2.6-2.9 cm meeting the criteria for AAA (?1.5 x proximal normal se gment) TECHNICAL DOCUMENTATION: JOB ID: [id number] Quality ID # [id number]: Final reports with documentation of one or more dose reduction techniques (e.g., Au tomated exposure control, adjustment of the mA and/or kV according to patient size, use of iterative reconstruction technique) 2010 [employer]- All Rights Reserved Reading location - IP/workstation name: [email or web address]
== END ==
LOC: RAD 07:45
PROVIDERS: ATTEND Family Medicine Geriatric Medicine
DX: I71.4 Abdominal aortic aneurysm, without rupture (principal); K80.80 Other cholelithiasis without obstruction
CPT/HCPCS: 74175